=== PATIENT | female | born 1930 | race Hispanic/Latino ===

== ENCOUNTER 2016-10-18 20:06 | Emergency (ER) | payer MEDICARE ==
[2016-10-18 20:19] VITALS: PULSE 76; RESP 18; O2SAT 97; BMI 31.1
[2016-10-18 20:27] VITALS: BP 146/86; TEMP 98.6
--- NOTE | 2016-10-18 20:32 | ED PDOC ---
Arrival/HPI - General Chief Complaint: Dizziness/Lightheaded Time Seen by Provider: 10/18/16 20:07 Historian: Patient - History of Present Illness Narrative History of Present Illness (Text): 10/18/16 20:29 An 86 year old female patient whose past medical history includes, hypertension , diabetes, and A- fib (not on anticoagulants), presents to the emergency department with room spinning sensation dizziness since this morning. The patient states that she had a similar episode last week that resolved. She notes that the symptoms become worse when she lays down. The patient denies fevers, chills, headache, chest pain, abdominal pain, shortness of breath, nausea, vomiting, diarrhea, or any other complaint. Time/Duration: Other (This morning) Symptom Onset: Sudden Symptom Course: Unchanged Activities at Onset: Rest, Light Context: Home Past Medical History - Provider Review Nursing Documentation Reviewed: Yes - Reproductive Menopause: Yes - Cardiac Hx Hypertension: Yes - Pulmonary Hx Respiratory Disorders: No - Neurological Hx Neurological Disorder: No - HEENT Hx Blind: Yes (rt eye, left eye mild) - Renal Hx Renal Disorder: No - Endocrine/Metabolic Hx Endocrine Disorders: No - Hematological/Oncological Hx Blood Disorders: No - Integumentary Hx Melanoma: Yes - Musculoskeletal/Rheumatological Hx Musculoskeletal Disorders: No - Gastrointestinal Hx Gastrointestinal Disorders: No - Genitourinary/Gynecological Hx Genitourinary Disorders: No - Psychiatric Hx Psychophysiologic Disorder: No Hx Substance Use: No - Anesthesia Hx Anesthesia: Yes Family/Social History - Physician Review Nursing Documentation Reviewed: Yes Family/Social History: No Known Family HX Smoking Status: Never Smoked Hx Alcohol Use: No Hx Substance Use: No Allergies/Home Meds Allergies/Adverse Reactions: Allergies No Known Allergies Allergy (Verified 10/18/16 20:19) Review of Systems - Physician Review All systems were reviewed & negative as marked: Yes - Review of Systems Constitutional: absent: Fevers, Night Sweats Respiratory: absent: SOB Cardiovascular: absent: Chest Pain Gastrointestinal: absent: Abdominal Pain, Diarrhea, Nausea, Vomiting Neurological: Dizziness (spinning sensation dizziness). absent: Headache Physical Exam Vital Signs Reviewed: Yes Vital Signs Temp Pulse Resp BP Pulse Ox 10/18/16 20:23 98.6 F 76 18 146/86 97 10/18/16 20:18 98.1 F 76 18 146/89 97 Temperature: Afebrile Blood Pressure: Normal Pulse: Regular Respiratory Rate: Normal Appearance: Positive for: Well-Appearing Pain Distress: None Mental Status: Positive for: Alert and Oriented X 3 - Systems Exam Head: Present: Atraumatic, Normocephalic Pupils: Present: PERRL Extroacular Muscles: Present: EOMI Conjunctiva: Present: Normal Mouth: Present: Moist Mucous Membranes Neck: Present: Normal Range of Motion Respiratory/Chest: Present: Clear to Auscultation, Good Air Exchange. No: Respiratory Distress, Accessory Muscle Use Cardiovascular: Present: Regular Rate and Rhythm, Normal S1, S2. No: Murmurs Abdomen: Present: Normal Bowel Sounds. No: Tenderness, Distention, Peritoneal Signs Back: Present: Normal Inspection Upper Extremity: Present: Normal Inspection. No: Cyanosis, Edema Lower Extremity: Present: Normal Inspection. No: Edema Neurological: Present: GCS=15, CN II-XII Intact, Speech Normal Skin: Present: Warm, Dry, Normal Color. No: Rashes Psychiatric: Present: Alert, Oriented x 3, Normal Insight, Normal Concentration Medical Decision Making ED Course and Treatment: 10/18/16 20:33 Impression: An 86 year old female who present with one day duration room spinning sensation dizziness. Differential Diagnosis included but are not limited to: vertigo central vs peripheral etiology Plan: -- Head CT -- EKG -- Labs -- Antivert -- Urinalysis -- Reassess and disposition Progress Notes: 10/18/16 20:56 EKG: Ordered, reviewed, and independently interpreted the EKG. Rate : 78 BPM Rhythm : Atrial fibrillation Interpretation : RBBB Comparison : No previous EKG for comparison. pt reports h/o of afib. 10/19/16 15:07 pt noted to have h/o of afib not on anticoagulation. pt reports perisistent symptoms. consideration for posterior cva. recommended pt be observed in hospital overnight to r/o cva with mri. pt refuses. understands risk of cva. sgns AMA. Leaving Against Medical Advice (AMA): The patient is choosing to leave against medical advice. I have personally explained to the patient that choosing to do so may result in permanent bodily harm or . I have discussed at great length that without further evaluation and monitoring there may be unforeseen circumstances and/or deterioration causing permanent bodily harm or as a result of their choice. The patient is alert, oriented, and shows the mental capacity to make clear decisions regarding the patients health care at this time. The patient continues to wish to leave against medical advice. In light of the patients decision to leave against medical advice, follow-up has been arranged and the patient is aware of the importance to following up as instructed. The patient has been advised that they should return to the emergency room immediately if they change their mind at any time, or if their condition begins to change or worsen in any way. - Lab Interpretations Lab Results: 10/18/16 21:20 10/18/16 21:20 Lab Results 10/18/16 21:20: Sodium 134, Potassium 4.6, Chloride 96 L, Carbon Dioxide 27, Anion Gap 16, BUN 15, Creatinine 0.7, Est GFR ( Amer) > 60, Est GFR (Non- Af Amer) > 60, Random Glucose 106, Calcium 9.7, Magnesium 1.7, Total Bilirubin 0.6, AST 23, ALT 29, Alkaline Phosphatase 97, Lactate Dehydrogenase 430, Total Creatine Kinase 34 L, Troponin I < 0.01, Total Protein 7.6, Albumin 4.5, Globulin 3.1, Albumin/Globulin Ratio 1.5 10/18/16 21:20: PT 12.8 H, INR 1.19 H, APTT 28.1 10/18/16 21:20: WBC 12.9 H, RBC 4.84, Hgb 14.9, Hct 42.2, MCV 87.2, MCH 30.8, MCHC 35.3, RDW 13.8, Plt Count 322, MPV 9.9, Gran % 71.6 H, Lymph % (Auto) 16.9 L, [place] % (Auto) 9.4 H, Eos % (Auto) 1.9, Baso % (Auto) 0.2, Gran # 9.23 H, Lymph # 2.2, [place] # 1.2 H, Eos # 0.2, Baso # 0.03 I have reviewed the lab results: Yes - RAD Interpretation Radiology Orders: 10/18/16 20:26 HEAD W/O CONTRAST [CT] Stat 10/18/16 21:34 CXR [CHEST PORTABLE] [RAD] Stat - EKG Interpretation Interpreted by ED Physician: Yes Type: 12 lead EKG - Medication Orders Current Medication Orders: Discontinued Medications Diazepam (Valium) 2.5 mg IVP STAT STA PRN Reason: Protocol Stop: 10/18/16 22:01 Last Admin: 10/18/16 23:14 Dose: Not Given Non-Admin Reason: Patient Refused Meclizine HCl (Antivert) 50 mg PO STAT STA Stop: 10/18/16 20:27 Last Admin: 10/18/16 21:14 Dose: 50 mg - Scribe Statement The provider has reviewed the documentation as recorded by the Kavya Ruiz Provider Danitaibe Attestation: All medical record entries made by the Scribe were at my direction and personally dictated by me. I have reviewed the chart and agree that the record accurately reflects my personal performance of the history, physical exam, medical decision making, and the department course for this patient. I have also personally directed, reviewed, and agree with the discharge instructions and disposition. Disposition/Present on Arrival - Present on Arrival Any Indicators Present on Arrival: No History of DVT/PE: No History of Uncontrolled Diabetes: No Urinary Catheter: No History of Decub. Ulcer: No History Surgical Site Infection Following: None - Disposition Have Diagnosis and Disposition been Completed?: Yes Diagnosis: Vertigo Disposition: AGAINST MEDICAL ADVICE Disposition Time: 11:00 Condition: UNKNOWN Discharge Instructions (ExitCare): Vertigo (ED), Leukocytosis (ED), Dizziness ( ED) Additional Instructions: please follow up with your doctor. you are refusing hospital admission. return to er with worsenign symptoms or concerns. Prescriptions: Meclizine [Antivert] 25 mg PO Q6 PRN #30 tab PRN Reason: Dizziness Referrals: [facility] [Outside] - Follow up with primary Regulo Salinas MD [Staff Provider] - Follow up with primary Forms: [employer] (Tunisian)
[2016-10-18 21:31] LABS: BASO # 0.03 K/mm3 (0.0-2.0); BASO % 0.2 % (0.0-3.0); EOS # 0.2 (0.0-0.7); EOS % 1.9 % (1.5-5.0); GRAN # 9.23 (1.4-6.5); GRAN % 71.6 % (50.0-68.0); HEMOGLOBIN 14.9 g/dL (12.0-16.0); LYMPH # 2.2 (1.2-3.4); LYMPH % 16.9 % (22.0-35.0); MEAN CELL VOLUME 87.2 fl (80.0-105.0); MEAN CORPUSCULAR HEMOGLOBIN 30.8 pg (25.0-35.0); MEAN CORPUSCULAR HGB CONC 35.3 g/dl (31.0-37.0); MEAN PLATELET VOLUME 9.9 fl (7.0-11.0); MONO # 1.2 (0.1-0.6); MONO % 9.4 % (1.0-6.0); PLATELET COUNT 322 10^3/uL (120.0-450.0); RBC 4.84 10^6/uL (3.5-6.1); RED CELL DISTRIBUTION WIDTH 13.8 % (11.5-14.5); WHITE BLOOD COUNT 12.9 10^3/ul (4.5-11.0)
[2016-10-18 21:42] LABS: ALB/GLOB RATIO 1.5 (1.1-1.8); ALBUMIN 4.5 g/dL (3.0-4.8); ALT/SGPT 29 U/L (7-56); AST/SGOT 23 U/L (15-39); BLOOD UREA NITROGEN 15 mg/dL (7-21); CALCIUM 9.7 mg/dL (8.4-10.5); GFR AFRICAN-AMERICAN > 60; GFR NON-AFRICAN AMERICAN > 60; MAGNESIUM 1.7 mg/dL (1.7-2.2)
[2016-10-18 21:43] LABS: INR 1.19 (0.93-1.08); PARTIAL THROMBOPLASTIN TIME 28.1 Seconds (23.7-30.8); PROTHROMBIN TIME 12.8 Seconds (9.9-11.8)
[2016-10-18 21:53] LABS: TROPONIN I < 0.01 ng/mL
[2016-10-18] MEDS ORDERED: diaZEpam 10 mg/2 ml Inj IVP STA (22:00)
--- NOTE | 2016-10-18 23:01 | CT ---
EXAM: CT Head Without Intravenous Contrast CLINICAL HISTORY: 86 years old, female; Signs and symptoms; Dizziness TECHNIQUE: Axial computed tomography images of the head/brain without intravenous contrast. All CT scans at this facility use one or more dose reduction techniques, viz.: automated exposure control; ma/kV adjustment per patient size (including targeted exams where dose is matched to indication; i.e. head); or iterative reconstruction technique. COMPARISON: No relevant prior studies available. FINDINGS: Brain: No acute intracranial hemorrhage. Age-appropriate periventricular white matter disease. No edema. Ventricles: Age-appropriate ventriculomegaly. Bones: No acute displaced fracture. Sinuses: Unremarkable as visualized. No acute sinusitis. Mastoid air cells: Unremarkable as visualized. No mastoid effusion. IMPRESSION: No acute intracranial hemorrhage, or suspicious mass effect.
--- NOTE | 2016-10-19 09:25 | RAD ---
HISTORY: dizziness COMPARISON: No prior. FINDINGS: LUNGS: No active pulmonary disease. PLEURA: No significant pleural effusion identified, no pneumothorax apparent. CARDIOVASCULAR: Normal. OSSEOUS STRUCTURES: No significant abnormalities. VISUALIZED UPPER ABDOMEN: Normal. OTHER FINDINGS: None. IMPRESSION: No active disease.
--- NOTE | 2016-10-19 23:52 | CARD ---
APPROVED REPORT EKG Measurement Heart [id number] <Conclusion> Atrial fibrillation Left axis deviation Right bundle branch block Abnormal ECG
== END 2016-10-18 22:50 | disposition left against medical advice (07) ==
LOC: ED 20:06
DX: R42 Dizziness and giddiness (principal); I10 Essential (primary) hypertension; E11.9 Type 2 diabetes mellitus without complications

== ENCOUNTER 2017-11-25 13:42 | Inpatient (IN) | payer MEDICARE ==
[2017-11-25 13:58] VITALS: BMI 32.1
--- NOTE | 2017-11-25 13:58 | ED PDOC ---
Arrival/HPI - General Time Seen by Provider: 11/25/17 13:47 Historian: Patient - History of Present Illness Narrative History of Present Illness (Text): 11/25/17 14:00 87 year old female, with past medical history of hypertension, diabetes and A- fib, presents to the emergency department complaining of vertigo, bilateral leg swelling and shortness of breath since past couple days. Patient states she was previously evaluated in the emergency department for vertigo but signed out AMA with Meclizine. Patient states mild improvement to symptoms with medication but has been worsening for past few days. Patient describes symptoms as room spinning worsening with movement of her head from side to side. Additionally, patient informs bilateral leg swelling for past 2 days associated with shortness of breath with exertion. Patient denies any associated chest pain or cough. Patient denies any fever, chills, nausea, vomiting, diarrhea, abdominal pain, neck pain, back pain, headache, urinary output changes, changes in bowel movement or any other complaints. Patient presents to the emergency department for medical evaluation. Time/Duration: < week Symptom Onset: Gradual Symptom Course: Unchanged Activities at Onset: Light Context: Home Past Medical History - Provider Review Nursing Documentation Reviewed: Yes - Cardiac Hx Hypertension: Yes - Pulmonary Hx Respiratory Disorders: No - Neurological Hx Neurological Disorder: No - HEENT Hx Blind: Yes (rt eye, left eye mild) - Renal Hx Renal Disorder: No - Endocrine/Metabolic Hx Endocrine Disorders: No - Hematological/Oncological Hx Blood Disorders: No - Integumentary Hx Melanoma: Yes - Musculoskeletal/Rheumatological Hx Musculoskeletal Disorders: No - Gastrointestinal Hx Gastrointestinal Disorders: No - Genitourinary/Gynecological Hx Genitourinary Disorders: No - Psychiatric Hx Psychophysiologic Disorder: No Hx Substance Use: No - Anesthesia Hx Anesthesia: Yes Family/Social History - Physician Review Nursing Documentation Reviewed: Yes Family/Social History: No Known Family HX Smoking Status: Never Smoked Hx Alcohol Use: No Hx Substance Use: No Allergies/Home Meds Allergies/Adverse Reactions: Allergies No Known Allergies Allergy (Verified 11/25/17 14:09) Home Medications: Home Meds Medication Instructions Recorded Confirmed Aspirin [Aspirin Chewable] 1 tab PO DAILY 11/25/17 11/25/17 Meclizine [Antivert] 25 mg PO Q8 11/25/17 11/25/17 Omeprazole 40 mg PO DAILY 11/25/17 11/25/17 amLODIPine [Norvasc] 1 tab PO DAILY 11/25/17 11/25/17 amLODIPine [Norvasc] 10 mg PO DAILY 11/25/17 11/25/17 glyBURIDE [Micronase] 2.5 mg PO BID 11/25/17 11/25/17 Review of Systems - Physician Review All systems were reviewed & negative as marked: Yes - Review of Systems Constitutional: absent: Fevers Respiratory: SOB. absent: Cough Cardiovascular: Edema, DOUGLAS. absent: Chest Pain Gastrointestinal: absent: Abdominal Pain, Diarrhea, Nausea, Vomiting Musculoskeletal: absent: Back Pain, Neck Pain Neurological: Dizziness. absent: Headache Physical Exam Vital Signs Reviewed: Yes Vital Signs Temp Pulse Resp BP Pulse Ox 11/25/17 15:34 74 16 159/76 H 95 11/25/17 15:33 159/76 H 11/25/17 14:09 17 95 11/25/17 13:57 98.3 F 76 18 165/73 H 95 Temperature: Afebrile Blood Pressure: Hypertensive Pulse: Regular Respiratory Rate: Normal Appearance: Positive for: Well-Appearing, Non-Toxic, Comfortable Pain Distress: None Mental Status: Positive for: Alert and Oriented X 3 - Systems Exam Head: Present: Atraumatic, Normocephalic Pupils: Present: PERRL Extroacular Muscles: Present: EOMI Conjunctiva: Present: Normal Neck: Present: Normal Range of Motion Respiratory/Chest: Present: Clear to Auscultation, Good Air Exchange. No: Respiratory Distress, Accessory Muscle Use Cardiovascular: Present: Normal S1, S2, Irregular Rhythm (Irregularly irregular rhythm). No: Murmurs Abdomen: No: Tenderness, Distention, Peritoneal Signs Back: Present: Normal Inspection Upper Extremity: Present: Normal Inspection. No: Cyanosis, Edema Lower Extremity: Present: Edema (bilateral pitting edema) Neurological: Present: GCS=15, CN II-XII Intact, Speech Normal Skin: Present: Warm, Dry, Normal Color. No: Rashes Psychiatric: Present: Alert, Oriented x 3, Normal Insight, Normal Concentration Medical Decision Making ED Course and Treatment: 11/25/17 13:57 Impression: 87 year old female presents to the emergency department complaining of vertigo, bilateral leg swelling and shortness of breath. Plan: -- CT of head -- EKG -- Labs -- CXR -- UA -- US of Lower Extremity --aspirin and meclizine if ct head negative. -- Reassess and disposition Prior Visits: Notes and results from previous visits were reviewed. Progress Notes: 11/25/17 14:55 EKG shows afib at 76bpm (Patient has hx of afib). Cxray negative. BNP elevated. Trop x [address] head negative. Labs show hyponatriemia. 11/25/17 15:29 U/s negative for dvt 11/25/17 17:19 IMPRESSION: Unremarkable CT pulmonary angiogram. No pulmonary embolus. 1.4 cm right upper lobe mass with subtle spiculation suspicious for primary neoplasm of the lung. 11/25/17 17:[address] Campoverde who will admit - Lab Interpretations Lab Results: 11/25/17 14:15 11/25/17 14:15 Lab Results 11/25/17 16:28: Urine Color Light yellow, Urine Appearance Cloudy, Urine pH 6.0 , Ur Specific [place] 1.025, Urine Protein >=300 H, Urine Glucose (UA) Negative , Urine Ketones Negative, Urine Blood Small H, Urine Nitrate Negative, Urine Bilirubin Negative, Urine Urobilinogen 2.0 H, Ur Leukocyte Esterase Negative, Urine RBC 10 - 15, Urine WBC 1 - 3, Ur Epithelial Cells Many, Amorphous Sediment Moderate, Urine Bacteria Many, Coarse Granular Casts Trace H, Urine Other Uyeast 11/25/17 14:15: Sodium 123 L, Potassium 4.2, Chloride 89 L, Carbon Dioxide 24, Anion Gap 15, BUN 17, Creatinine 0.5 L, Est GFR ( Amer) > 60, Est GFR ( Non-Af Amer) > 60, Random Glucose 173 H, Calcium 9.0, Phosphorus 3.8, Magnesium 1.7, Total Bilirubin 1.2, AST 46 H, ALT 31, Alkaline Phosphatase 104, Total Creatine Kinase 76, Troponin I < 0.01, NT-Pro-B Natriuret Pep 2240 H, Total Protein 7.2, Albumin 4.2, Globulin 3.0, Albumin/Globulin Ratio 1.4 11/25/17 14:15: PT 15.2 H, INR 1.31, APTT 25.6, D-Dimer, Quantitative 483 H 11/25/17 14:15: WBC 11.9 H, RBC 4.16, Hgb 12.5 D, Hct 34.3 L, MCV 82.5 D, MCH 30.0, MCHC 36.4, RDW 13.2, Plt Count 425, MPV 9.2, Gran % 82.9 H, Lymph % (Auto ) 7.9 L, [place] % (Auto) 8.3 H, Eos % (Auto) 0.7 L, Baso % (Auto) 0.2, Gran # 9.85 H, Lymph # (Auto) 0.9 L, [place] # (Auto) 1.0 H, Eos # (Auto) 0.1, Baso # ( Auto) 0.02 - RAD Interpretation Radiology Orders: 11/25/17 13:50 HEAD W/O CONTRAST [CT] Stat CHEST ONE VIEW [RAD] Stat 11/25/17 13:56 DUPLEX LOWER EXTRM VEIN BILAT [US] Stat 11/25/17 15:19 ANGIO CHEST PE PROTOCOL [CT] Stat - Medication Orders Current Medication Orders: Discontinued Medications Aspirin (Aspirin Chewable) 324 mg PO STAT STA Stop: 11/25/17 14:58 Last Admin: 11/25/17 15:33 Dose: 324 mg Furosemide (Lasix) 40 mg IVP STAT STA Stop: 11/25/17 14:55 Last Admin: 11/25/17 15:33 Dose: 40 mg MAR Blood Pressure Document 11/25/17 15:33 [facility] [place] (Rec: 11/25/17 15:33 [id number] Blood Pressure Blood Pressure (100/60-150/90 mm Hg) 159/76 IVP Administration Document 11/25/17 15:33 [facility] [place] (Rec: 11/25/17 15:33 [id number] Charges for Administration # of IVP Administrations 1 Meclizine HCl (Antivert) 50 mg PO STAT STA Stop: 11/25/17 14:58 Last Admin: 11/25/17 15:32 Dose: 50 mg - Scribe Statement The provider has reviewed the documentation as recorded by the Danitaibrachael Sifuentes. All medical record entries made by the Danitaibrachael were at my direction and personally dictated by me. I have reviewed the chart and agree that the record accurately reflects my personal performance of the history, physical exam, medical decision making, and the department course for this patient. I have also personally directed, reviewed, and agree with the discharge instructions and disposition. Disposition/Present on Arrival - Present on Arrival Any Indicators Present on Arrival: No History of DVT/PE: No History of Uncontrolled Diabetes: No Urinary Catheter: No History Surgical Site Infection Following: None - Disposition Have Diagnosis and Disposition been Completed?: Yes Diagnosis: CHF (congestive heart failure), Hyponatremia, Lung mass, Dizziness, Atrial fibrillation Disposition Time: 18:52 Patient Plan: Admission Patient Problems: Current Active Problems Problem Status Onset CHF (congestive heart failure) Acute Hyponatremia Acute Lung mass Acute Dizziness Acute Atrial fibrillation Acute Condition: FAIR
[2017-11-25 14:37] LABS: BASO # 0.02 K/mm3 (0.0-2.0); BASO % 0.2 % (0.0-3.0); EOS # 0.1 (0.0-0.7); EOS % 0.7 % (1.5-5.0); GRAN # 9.85 (1.4-6.5); GRAN % 82.9 % (50.0-68.0); HEMOGLOBIN 12.5 g/dL (12.0-16.0); LYMPH # 0.9 (1.2-3.4); LYMPH % 7.9 % (22.0-35.0); MEAN CELL VOLUME 82.5 fl (80.0-105.0); MEAN CORPUSCULAR HGB CONC 36.4 g/dl (31.0-37.0); MEAN PLATELET VOLUME 9.2 fl (7.0-11.0); MONO % 8.3 % (1.0-6.0); RBC 4.16 10^6/uL (3.5-6.1); RED CELL DISTRIBUTION WIDTH 13.2 % (11.5-14.5); WHITE BLOOD COUNT 11.9 10^3/ul (4.5-11.0)
[2017-11-25 14:40] LABS: INR 1.31; PROTHROMBIN TIME 15.2 SECONDS (9.4-12.5)
[2017-11-25 14:41] LABS: ALB/GLOB RATIO 1.4 (1.1-1.8); ALBUMIN 4.2 g/dL (3.0-4.8); ALT/SGPT 31 U/L (7-56); AST/SGOT 46 U/L (14-36); BLOOD UREA NITROGEN 17 mg/dL (7-21); GFR NON-AFRICAN AMERICAN > 60; PARTIAL THROMBOPLASTIN TIME 25.6 Seconds (25.1-36.5)
[2017-11-25 14:53] LABS: B-TYPE NATRIURETIC PEPTIDE 2240 pg/mL (0-450); TROPONIN I < 0.01 ng/mL
--- NOTE | 2017-11-25 14:54 | RAD ---
Date of service: 11/25/2017 PROCEDURE: CHEST RADIOGRAPH, 1 VIEW HISTORY: dizziness COMPARISON: 10/18/2016 FINDINGS: LUNGS: Clear. PLEURA: No pneumothorax or pleural fluid seen. CARDIOVASCULAR: Normal. OSSEOUS STRUCTURES: No significant abnormalities. VISUALIZED UPPER ABDOMEN: Normal. OTHER FINDINGS: None. IMPRESSION: No active disease.
--- NOTE | 2017-11-25 14:58 | CT ---
Date of service: 11/25/2017 PROCEDURE: CT HEAD WITHOUT CONTRAST. HISTORY: dizziness COMPARISON: 10/18/2016 TECHNIQUE: Axial computed tomography images were obtained through the head/brain without intravenous contrast. Radiation dose: Total exam DLP = 1027 mGy-cm. This CT exam was performed using one or more of the following dose reduction techniques: Automated exposure control, adjustment of the mA and/or kV according to patient size, and/or use of iterative reconstruction technique. FINDINGS: HEMORRHAGE: No intracranial hemorrhage. BRAIN: No mass effect or edema. No atrophy or chronic microvascular ischemic changes. VENTRICLES: Unremarkable. No hydrocephalus. CALVARIUM: Unremarkable. PARANASAL SINUSES: Unremarkable as visualized. No significant inflammatory changes. MASTOID AIR CELLS: Unremarkable as visualized. No inflammatory changes. OTHER FINDINGS: None. IMPRESSION: No acute findings
[2017-11-25] MEDS ORDERED: Iodixanol 320 MG/ML 100 ML BOTTLE IV ONE (16:08)
[2017-11-25 16:37] LABS: URINE APPEARANCE CLOUDY (CLEAR); URINE BILIRUBIN NEGATIVE (NEGATIVE); URINE BLOOD SMALL (NEGATIVE); URINE COLOR LIGHT YELLOW (YELLOW); URINE GLUCOSE (UA) NEGATIVE (NEGATIVE); URINE LEUKOCYTE ESTERASE NEGATIVE Leu/uL (NEGATIVE); URINE PROTEIN >=300 mg/dL (<30 mg/dL)
[2017-11-25 16:40] LABS: URINE BACTERIA MANY (NEG); URINE EPITHELIAL CELLS MANY /hpf (0-5)
[2017-11-25 16:41] LABS: URINE AMORPHOUS SEDIMENT MODERATE
[2017-11-25 16:43] LABS: URINE COARSE GRANULAR CAST TRACE /hpf (0-2)
--- NOTE | 2017-11-25 17:18 | CT ---
Date of service: 11/25/2017 PROCEDURE: CT Chest with contrast (Pulmonary Angiogram) HISTORY: shortness fo breath COMPARISON: None available. TECHNIQUE: Axial computed tomography images were obtained of the chest in the pulmonary arterial phase of enhancement. Coronal and sagittal reformatted images were created and reviewed. Intravenous contrast dose: 100 cc Visipaque [id number]. Mean Hounsfield unit values in the main pulmonary artery: 330.70 Radiation dose: Total exam DLP = 529.72 mGy-cm. This CT exam was performed using one or more of the following dose reduction techniques: Automated exposure control, adjustment of the mA and/or kV according to patient size, and/or use of iterative reconstruction technique. FINDINGS: PULMONARY ARTERIES: Dilated main pulmonary artery 3.8 cm consistent with pulmonary arterial hypertension. AORTA: No acute findings. No thoracic aortic aneurysm. LUNGS: 14 mm pulmonary nodule apex of the right lung. The mass displays slight spiculation. PLEURAL SPACES: Trace bilateral pleural effusions left larger than right. HEART: Unremarkable. No cardiomegaly. No significant pericardial effusion. LYMPH NODES: No lymphadenopathy. BONES, CHEST WALL: Scoliosis, secondary degenerative change at multiple levels. This includes disc space narrowing and non marginal osteophyte formation mid and lower thoracic spine. OTHER FINDINGS: Partially calcified mass likely benign upper pole right kidney. This is not felt to be clinically consequential. IMPRESSION: Unremarkable CT pulmonary angiogram. No pulmonary embolus. 1.4 cm right upper lobe mass with subtle spiculation suspicious for primary neoplasm of the lung. Communication of results: I discussed the findings with La, physician legal executive assistant involved in the care and management of this individual at the time of this interpretation. Study completed at 16:51. Preliminary results provided at 17:16.
--- NOTE | 2017-11-25 17:22 | US ---
HISTORY: Leg pain and swelling. Evaluate for DVT PHYSICIAN(S): Lemuel Sterling MD. TECHNIQUE: Duplex sonography and color-flow Doppler with graded compression were used to evaluate the deep venous systems of both lower extremities. FINDINGS: The visualized deep venous systems of both lower extremities are sonographically normal and compressible. Normal wave forms and augmentation are seen. There is no sonographic evidence for deep venous thrombosis in the visualized segments of both lower extremities. There is a 2.8 x 5.3 cm fluid collection left popliteal fossa, consistent with a [place] cyst IMPRESSION: No sonographic evidence for deep venous thrombosis in the visualized segments of both lower extremities.
[2017-11-25] MEDS ORDERED: Enoxaparin 40 mg Syringe SC STA (18:59)
[2017-11-25] MEDS: Levalbuterol 1.25 MG/3 ML Inhal Soln UD IH SCH (23:15)
[2017-11-26 00:15] LABS: HDL CHOLESTEROL 77 mg/dL (29-60)
[2017-11-26 00:25] LABS: LDL CHOLESTEROL 97 mg/dL (0-129)
[2017-11-26 00:26] LABS: TROPONIN I < 0.01 ng/mL
[2017-11-26] MEDS: Levalbuterol 1.25 MG/3 ML Inhal Soln UD IH SCH ×4 (01:02→19:45)
[2017-11-26] MEDS ORDERED: Levalbuterol 1.25 MG/3 ML Inhal Soln UD IH STA (04:44)
--- NOTE | 2017-11-26 05:46 | HP ---
HISTORY OF PRESENT ILLNESS: The patient is 87 years old, known to me from office practice. She was just seen last week. The patient lately has been very depressed because of her worsening eyesight. 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 She was brought in for regular checkup. At that point, she has no complaint, however, she started to have shortness of breath. There is no history of fever, no chills. No nausea or vomiting. No history of hemoptysis, no hematemesis. No chest pain. No leg swelling. PAST MEDICAL HISTORY: Significant for: 1. Hypertension. 2. Kho-rcqfrmv-ykyqzmipf diabetes. 3. Gastritis. 4. Wet macular degeneration. 5. History of melanoma resection in the remote past. ALLERGIES: SHE IS NOT ALLERGIC TO ANY MEDICATION. MEDICATION AT HOME: She is on amlodipine 10 mg daily, omeprazole 40 mg daily, meclizine 25 three times a day, glyburide 2.5 twice a day and aspirin 81 mg daily. SOCIAL HISTORY: She used to be a smoker in the past, but quit many, many years ago. 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 REVIEW OF SYSTEMS: Significant for feeling weak, visual disturbance and shortness of breath. PHYSICAL EXAMINATION GENERAL: She is awake, alert, oriented, communicative. VITAL SIGNS: She is afebrile, pulse 70, respirations 18, blood pressure 140/76. LUNGS: Bilateral few soft crackle at bases. HEART: S1 and S2 audible. ABDOMEN: Soft, nontender. No rebound. No guarding. NEUROLOGICAL: She is awake, alert, oriented, but visually impaired. EXTREMITIES: Bilateral legs, no edema. LABORATORY EXAM: WBC is 11.9, hemoglobin 12.5, hematocrit 34.3, platelet of 425. PT is 15.2, INR 1.31. Chemistry: Sodium 123, potassium 4.2, chloride 89, CO2 of 24, BUN 17, creatinine 0.5, blood sugar of 123. Calcium 9. LFTs are within normal limits. BNP 2240. Urine shows trace granular cast and small blood. She had x-ray of chest done that shows no active disease; however, CT scan of the chest shows 1.4 cm right upper lobe mass was suspicious for neoplasm and otherwise negative for pulmonary angiogram. ASSESSMENT: 1. Paroxysmal atrial fibrillation. 2. Hypertension. 3. Lung mass. 4. Mild congestive heart failure. 5. History of hypertension. 6. Cmh-gppjtft-pkxwxcliz diabetes. 7. Hyponatremia. PLAN: I will order for echocardiogram. We will continue her medication and monitor her blood sugar. I will discuss with the family if we should pursue for this lung mass, if the patient or family is willing to proceed for biopsy, we will get Dr. Lemuel Sterling involved. Bill Campoverde MD
[2017-11-26] MEDS: Pantoprazole 40 mg EC Tab PO SCH (06:02)
[2017-11-26 07:01] LABS: ALB/GLOB RATIO 1.3 (1.1-1.8); ALBUMIN 3.8 g/dL (3.0-4.8); ALT/SGPT 38 U/L (7-56); AST/SGOT 40 U/L (14-36); BASO # 0.02 K/mm3 (0.0-2.0); BASO % 0.2 % (0.0-3.0); BLOOD UREA NITROGEN 17 mg/dL (7-21); CALCIUM 8.6 mg/dL (8.4-10.5); EOS % 0.2 % (1.5-5.0); GFR NON-AFRICAN AMERICAN > 60; GRAN # 10.12 (1.4-6.5); GRAN % 79.9 % (50.0-68.0); HEMOGLOBIN 11.2 g/dL (12.0-16.0); LYMPH # 1.2 (1.2-3.4); LYMPH % 9.5 % (22.0-35.0); MEAN CELL VOLUME 82.7 fl (80.0-105.0); MEAN CORPUSCULAR HEMOGLOBIN 29.8 pg (25.0-35.0); MEAN PLATELET VOLUME 9.5 fl (7.0-11.0); MONO # 1.3 (0.1-0.6); MONO % 10.2 % (1.0-6.0); RBC 3.76 10^6/uL (3.5-6.1); RED CELL DISTRIBUTION WIDTH 13.2 % (11.5-14.5); WHITE BLOOD COUNT 12.7 10^3/ul (4.5-11.0)
[2017-11-26 07:05] LABS: FREE T4 1.32 ng/dL (0.78-2.19)
[2017-11-26] MEDS ORDERED: methylPREDNISolone 50 MG in Sodium Chloride 0.9% 100 ML IVPB ONE (09:37)
[2017-11-26] MEDS ORDERED: Potassium Chloride 20 mEq ER Tab PO ONE (09:39)
[2017-11-26 10:34] LABS: HDL CHOLESTEROL 71 mg/dL (29-60)
[2017-11-26] MEDS: Enoxaparin 80 mg Syringe SC SCH ×2 (10:34→22:06)
[2017-11-26 10:44] LABS: LDL CHOLESTEROL 96 mg/dL (0-129)
[2017-11-26] MEDS ORDERED: Levalbuterol 1.25 MG/3 ML Inhal Soln UD IH PRN (11:30)
[2017-11-26] MEDS ORDERED: Levalbuterol 1.25 MG/3 ML Inhal Soln UD IH SCH (12:00)
--- NOTE | 2017-11-26 12:10 | PN ---
DATE: 11/26/2017 SUBJECTIVE: The patient is 87 years old, seen and examined. She states she feels better. Shortness of breath is better than before. No complaint of nausea or vomiting. PHYSICAL EXAMINATION: VITAL SIGNS: She is afebrile, pulse 87, respirations 20, blood pressure 168/83. LUNGS: Bilateral expiratory rhonchi. HEART: S1 and S2 audible. ABDOMEN: Soft. Nontender. No rebound. No guarding. NEUROLOGICAL: The patient is awake, alert, oriented, communicative. EXTREMITIES: Bilateral leg, no edema. LABORATORY EXAM: WBC is 12.7, hemoglobin 11.2, hematocrit 31.1, platelet of 425. Chemistry: Sodium 124, potassium 3.7, chloride 191, CO2 of 23, BUN 17, creatinine 0.5, blood sugar of 172, HDL is 77. CT scan shows right upper lung mass that is 1.4 cm. Echocardiogram is pending. ASSESSMENT: 1. Chronic obstructive pulmonary disease exacerbation. 2. Right upper lung mass. 3. Congestive heart failure. 4. Mty-cbpsljd-paceoxmty diabetes. 5. Hypertension. 6. Hyperlipidemia. PLAN: I will cut down her meclizine to every 12. Continue her on nebulizer treatment. Monitor her blood sugar. Discussed with the patient and her son, Darion. They do not want to biopsy give her age and other comorbidities. She states she does not want to know what is that mass. The patient has been a smoker for almost 50 years. Currently, because of her AFib, she is on Lovenox. I will start her on Solu-Medrol. Out of bed to chair. Follow up echocardiogram. Follow up the patient in the a.m. Bill Campoverde MD
[2017-11-26] MEDS ORDERED: Albuterol-Ipratrop 3 mg / 0.5 (3 ml) UD IH PRN (12:22)
--- NOTE | 2017-11-26 12:47 | CARD ---
APPROVED REPORT Date of service: 11/26/2017 EXAM: Two-dimensional and M-mode echocardiogram with Doppler and color Doppler. INDICATION Dyspnea Atrial Fibrillation 2D DIMENSIONS Left Atrium (2D)5.9 (1.6-4.0cm)IVSd1.4 (0.7-1.1cm) LVDd4.7 (3.9-5.9cm)PWd1.7 (0.7-1.1cm) LVDs2.8 (2.5-4.0cm)FS (%) 41.4 % LVEF (%)72.1 (>50%) M-Mode DIMENSIONS Aortic Root3.50 (2.2-3.7cm)Aortic Cusp Exc.1.70 (1.5-2.0cm) Aortic Valve AoV Peak Kpvdwrps903.0cm/sAoV VTI41.7cmAO Peak GR.18mmHg LVOT Peak Zcvutrpq397.0cm/sLVOT VTI32.50cmAO Mean GR.9mmHg Mitral Valve MV E Viaerysc633.0cm/sMV A Vmyeymzs77.8cm/sMV OGK59sd E/A ratio2.6MVA (PHT)3.38cm2 TDI Lateral E' Peak V15.80cm/sMedial E' Peak V7.90cm/sE/Lateral E'8.9 E/Medial E'17.7 Pulmonary Valve PV Peak Jxvlukuu428.0cm/sPV Peak Grad.6mmHg Tricuspid Valve TR Peak Ybocsqpy274hy/sRAP NBAZZSAJ38tfVaCP Peak Gr.67mmHg KVDH83knDh LEFT VENTRICLE The left ventricle is normal size. There is mild to moderate concentric left ventricular hypertrophy. The left ventricular function is normal.EF-65-70% . There is normal LV segmental wall motion. A fib No left ventricle thrombus noted on this study. There is no ventricular septal defect visualized. There is no left ventricular aneurysm. There is no mass noted in the left ventricle. RIGHT VENTRICLE The right ventricle is mildly dilated. There is normal right ventricular wall thickness. Systolic function of RV is mildly reduced. ATRIA The left atrium is moderately dilated. The right atrium is mildly dilated. The interatrial septum is intact with no evidence for an atrial septal defect. AORTIC VALVE The aortic valve is thickened but opens well. The aortic valve is moderately sclerotic. There is trace aortic regurgitation. Aortic Sclerosis Vs mild As There is no aortic valvular vegetation. MITRAL VALVE The mitral valve is thickened but opens well. Mitral regurgitation is moderate. There is no mitral valve stenosis. There is no evidence of mitral valve prolapse. TRICUSPID VALVE The tricuspid valve leaflets are thickened , but open well. There is moderate tricuspid regurgitation.RVSP-72 mmof hg. There is no tricuspid valve stenosis. There is no tricuspid valve prolapse or vegetation. PULMONIC VALVE The pulmonic valve is mildly thickened. There is mild to moderate pulmonic valvular regurgitation. There is no pulmonic valvular stenosis. GREAT VESSELS The aortic root is normal in size. The ascending aorta is normal in size. The pulmonary artery is normal. The IVC is normal in size and collapses >50% with inspiration. PERICARDIAL EFFUSION There is no pleural effusion. There is no pericardial effusion. <Conclusion> The left ventricle is normal size. There is mild to moderate concentric left ventricular hypertrophy. The left ventricular function is normal.EF-65-70% .The right ventricle is mildly dilated. Systolic function of RV is mildly reduced. There is trace aortic regurgitation. Aortic Sclerosis Vs mild As Mitral regurgitation is moderate. There is moderate tricuspid regurgitation.RVSP-72 mmof hg. There is mild to moderate pulmonic valvular regurgitation. The IVC is normal in size and collapses >50% with inspiration. There is no pericardial effusion.
--- NOTE | 2017-11-26 14:03 | CARD ---
APPROVED REPORT Date of service: 11/25/2017 EKG Measurement Heart [id number] <Conclusion> Atrial fibrillation right bundle branch block T wave abnormality, consider lateral ischemia or digitalis effect Abnormal ECG
[2017-11-26] MEDS: Insulin Lispro (HUMAlog) HIGH Coverage SC SCH ×2 (17:38→22:06)
--- NOTE | 2017-11-26 19:47 | CON ---
DATE: 11/26/2017 BRIEF CLINICAL HISTORY: This is an 87-year-old female with past medical history significant for chronic atrial fibrillation last 7 years, being told after the cataract surgery, the patient has irregular heart beat, not on anticoagulation, admitted yesterday with progressive worsening shortness of breath. CAT scan suspicious for right upper lobe mass, possible neoplasm. On admission, the patient has also wheezing, got Proventil treatment, it has got better. Denies any chest pain, but short of breath. PAST MEDICAL HISTORY: Significant for atrial fibrillation told 7 years ago after the cataract surgery, the patient has irregular heart beat, history of hypertension, history of macular cataract surgery, history of type 2 diabetes, gastritis, macular degeneration. PAST SURGICAL HISTORY: Significant for cataract surgery, resection of melanoma in the past. SOCIAL HISTORY: Active tobacco abuse, half a pack a day. Denies any history of alcohol abuse. ALLERGIES: NO KNOWN DRUG ALLERGIES. CURRENT MEDICATIONS: The patient is taking amlodipine, omeprazole, meclizine, glyburide and aspirin. REVIEW OF SYSTEMS: A 14-point review of systems is negative except as per HPI, the recent shortness of breath getting worse. PHYSICAL EXAMINATION: VITAL SIGNS: Height of the patient is 5 feet and 2 inches, weight of the patient 176 pounds, body mass index 32 kg/m2. Heart rate 95, blood pressure 186/71. HEENT: PERRLA. Extraocular muscles intact. NECK: Supple. No carotid bruits or thyromegaly. CHEST: Clear to auscultation with scattered rhonchi noted. Decreased air entry in right base. ABDOMEN: Soft. EXTREMITIES: Clubbing and cyanosis negative. LABORATORY DATA: EKG showed atrial fibrillation. CAT scan of the chest was done yesterday and that shows 1.5 cm upper lobe mass with subtle speculation suspicious for primary neoplasm of the lung. IMPRESSION: An 87-year-old female with a past medical history of diabetes; hypertension; hyperlipidemia; history of chronic atrial fibrillation, not on anticoagulation; admitted with worsening shortness of breath. CT chest is possible 1.4 cm mass in the lung. RECOMMENDATIONS: Follow up for biopsy. We will start Lovenox so she can be held for the biopsy. We will not start Eliquis. For now, we will get echo to assess LV function. Lipid profile, TSH, hemoglobin A1c and we will discontinue amlodipine and we will start verapamil to control the heart rate. We will follow with you. Further recommendations depending on hospital course. We will follow with you. Thank you, , for providing us the opportunity in taking care of the patient, Alice Blum. Rakel Bush MD
[2017-11-26] MEDS: MethylPREDNISolone 40 mg Vial IV SCH (22:07)
[2017-11-27] MEDS: Levalbuterol 1.25 MG/3 ML Inhal Soln UD IH SCH ×4 (02:21→19:39)
[2017-11-27] MEDS: Pantoprazole 40 mg EC Tab PO SCH (06:05)
[2017-11-27 06:27] LABS: GRAN # 10.18 (1.4-6.5); GRAN % 93.6 % (50.0-68.0); HEMOGLOBIN 10.5 g/dL (12.0-16.0); LYMPH # 0.6 (1.2-3.4); LYMPH % 5.1 % (22.0-35.0); MEAN CORPUSCULAR HEMOGLOBIN 29.9 pg (25.0-35.0); MEAN CORPUSCULAR HGB CONC 35.6 g/dl (31.0-37.0); MEAN PLATELET VOLUME 9.2 fl (7.0-11.0); MONO # 0.1 (0.1-0.6); MONO % 1.3 % (1.0-6.0); PLATELET COUNT 304 10^3/uL (120.0-450.0); RBC 3.51 10^6/uL (3.5-6.1); RED CELL DISTRIBUTION WIDTH 13.6 % (11.5-14.5); WHITE BLOOD COUNT 10.9 10^3/ul (4.5-11.0)
[2017-11-27 06:43] LABS: BLOOD UREA NITROGEN 20 mg/dL (7-21); CALCIUM 8.7 mg/dL (8.4-10.5); GFR NON-AFRICAN AMERICAN > 60
[2017-11-27] MEDS: Insulin Lispro (HUMAlog) HIGH Coverage SC SCH ×4 (07:30→23:48)
--- NOTE | 2017-11-27 07:37 | CP.PCM.PN ---
Subjective - Date & Time of Evaluation Date of Evaluation: 11/27/17 Time of Evaluation: 06:15 - Subjective Subjective: Awake, feels better, denies shortness of breath Reason for consultation and follow up: Cardiac evaluation of shortness of breath , history of hypertension, Atrial fibrillation,diabetes Seen and examined by me and Dr. Bush Objective - Vital Signs/Intake and Output Vital Signs (last 24 hours): Temp Pulse Resp BP Pulse Ox 98.2 F 66 18 102/53 L 98 11/26/17 23:30 11/27/17 05:34 11/26/17 23:30 11/26/17 23:30 11/26/17 23:30 Intake and Output: 11/27/17 11/27/17 06:59 18:59 Intake Total 580 Balance 580 - Medications Medications: Current Medications Acetaminophen (Tylenol 325mg Tab) 650 mg PO Q6H PRN PRN Reason: Fever >100.4 F Last Admin: 11/26/17 20:49 Dose: 650 mg Albuterol/Ipratropium (Duoneb 3 Mg/0.5 Mg (3 Ml) Ud) 3 ml IH Q2H PRN PRN Reason: Shortness of Breath Alprazolam (Xanax) 0.25 mg PO HS KWAN PRN Reason: Protocol Stop: 12/02/17 22:01 Last Admin: 11/26/17 22:07 Dose: 0.25 mg Aspirin (Aspirin Chewable) 81 mg PO DAILY [facility] Last Admin: 11/26/17 09:34 Dose: 81 mg Enoxaparin Sodium (Lovenox) 70 mg SC Q12H KWAN PRN Reason: Protocol Last Admin: 11/26/17 22:06 Dose: 70 mg Furosemide (Lasix) 40 mg IVP DAILY [facility] Last Admin: 11/26/17 09:35 Dose: 40 mg Glyburide (Micronase) 5 mg PO 0800,1700 [facility] Last Admin: 11/26/17 17:37 Dose: 5 mg Insulin Human Lispro (Humalog High) 0 units SC ACHS [facility] PRN Reason: Protocol Last Admin: 11/26/17 22:06 Dose: Not Given Levalbuterol HCl (Xopenex) 1.25 mg IH [id number] [facility] Last Admin: 11/27/17 02:21 Dose: Not Given Levalbuterol HCl (Xopenex) 1.25 mg IH [id number] PRN PRN Reason: Shortness of Breath Last Admin: 11/26/17 11:42 Dose: 1.25 mg Losartan Potassium (Cozaar) 50 mg PO DAILY [facility] Last Admin: 11/26/17 13:38 Dose: 50 mg Meclizine HCl (Antivert) 25 mg PO 12 [facility] Last Admin: 11/26/17 13:38 Dose: 25 mg Methylprednisolone (Solu-Medrol) 40 mg IV Q12 [facility] Last Admin: 11/26/17 22:07 Dose: 40 mg Nicotine (Nicoderm Cq) 1 patch TD DAILY [facility] Last Admin: 11/26/17 13:38 Dose: 1 patch Ondansetron HCl (Zofran Inj) 4 mg IVP Q6H PRN PRN Reason: Nausea/Vomiting Pantoprazole Sodium (Protonix Ec Tab) 40 mg PO 0630 [facility] Last Admin: 11/27/17 06:05 Dose: 40 mg Verapamil HCl (Calan Tab) 80 mg PO TID [facility] Last Admin: 11/26/17 17:37 Dose: 80 mg - Labs Labs: 11/27/17 05:20 11/27/17 05:20 PT 15.2 SECONDS (9.4-12.5) H 11/25/17 14:15 INR 1.31 11/25/17 14:15 APTT 25.6 Seconds (25.1-36.5) 11/25/17 14:15 - Constitutional Appears: No Acute Distress - Eye Exam Eye Exam: Normal appearance - ENT Exam ENT Exam: Mucous Membranes Moist - Respiratory Exam Respiratory Exam: Decreased Breath Sounds, NORMAL BREATHING PATTERN - Cardiovascular Exam Cardiovascular Exam: +S1, +S2 Additional comments: telemetry afib -60's - GI/Abdominal Exam GI & Abdominal Exam: Soft, Normal Bowel Sounds - Extremities Exam Extremities Exam: Normal Capillary Refill - Neurological Exam Neurological Exam: Alert, Awake, Oriented x3 Additional comments: legally blind - Psychiatric Exam Psychiatric exam: Normal Affect - Skin Skin Exam: Warm Assessment and Plan - Assessment and Plan (Free Text) Assessment: An 87 year old female who came in to the ER due to shortness of breath. History of hypertension,COPD, former smoker, diabetes and A-fib, hyperlipidemia, CT of chest possible lung mass. exacerbation of COPD, nebulizer treatment with relief of shortness of breath. Not on anticoagulation for Afib. Started on Lovenox. Will start Eliquis later on if no invasive procedures to be done, (re: lung biopsy).Stable, Echo to evaluate LV function. Plan: Echo done-Normal LV size-LVEF 65-70% moderate left ventricular hyperthropy, mildly dilated RV, mildly reduced systolic function, trace AR,moderate MR/TR/PVR, RVSP 72mmHg Controlled heart rate- Afib-60's Stable blood pressure Glucose control Continue current medications Continue current treatment If no invasive procedure, Will start Eliquis Will follow up Plan and treatment discusseed with Dr. Bush
[2017-11-27 09:13] LABS: LYMPHOCYTE 6 % (22.0-35.0); MONOCYTE 2 % (1.0-6.0); NEUTROPHIL 92 % (50.0-70.0); PLATELET ESTIMATE NORMAL (NORMAL)
[2017-11-27] MEDS: MethylPREDNISolone 40 mg Vial IV SCH ×2 (09:49→23:49)
[2017-11-27] MEDS: Enoxaparin 80 mg Syringe SC SCH ×2 (10:00→21:15)
--- NOTE | 2017-11-27 12:01 | PN ---
DATE: 11/27/2017 SUBJECTIVE: The patient is 87 years old, seen and examined, lying in bed, seems to be comfortable. States shortness of breath is better, but gets short of breath on walking. PHYSICAL EXAMINATION: VITAL SIGNS: She is afebrile, pulse 70, respirations 18, and blood pressure 135/71. LUNGS: Bilateral fair airflow. Decreased breath sounds. Rhonchi has improved. ABDOMEN: Soft, nontender. No rebound, no guarding. NEUROLOGIC: She is awake, alert, oriented, able to communicate. LABORATORY EXAM: WBC is 10.9, hemoglobin 10, hematocrit 29.5, and platelets of 304. Chemistry: Sodium 127, potassium 3.9, chloride 94, CO2 of 26. BUN 20, creatinine 0.7. Blood sugar of 144. ASSESSMENT: 1. Chronic obstructive pulmonary disease exacerbation. 2. Bronchospasm that has improved. 3. Right upper lung mass 1.4 cm. 4. Vsi-rbxiuvb-zrtgjubhp diabetes. 5. Hypertension. 6. Hyperlipidemia. PLAN: We will continue on IV steroids, continue antibiotics. The patient is scheduled to have stress test on tomorrow. We will follow up the patient in a.m. She does not want to have a biopsy done for her lung mass, spoke to son, Darion. He also is in agreement. Bill Campoverde MD
--- NOTE | 2017-11-27 13:32 | PN ---
DATE: 11/27/2017 This note is an addendum to the initial progress note dictated by nurse practitioner for the lady, Alice Blum. Lying flat on the bed, feels a lot better, admitted with new onset of atrial fibrillation possible exacerbation of COPD. Echo done yesterday that shows moderate LVH, ejection fraction well preserved 65 to 70%. We will get stress test tomorrow for risk stratification. For now, we will leave on Lovenox. Once the stress test is done, we will start Eliquis for history of chronic atrial fibrillation from 7 years. We will keep n.p.o. after 12 midnight for stress test tomorrow. Further recommendation depending upon the hospital course and findings of initial workup. TSH within normal limits. Hemoglobin A1c is 6.8 that reflects poorly controlled diabetes. In the interim, continue aspirin, continue verapamil 80 mg p.o. t.i.d. and if the blood pressure remains low, we will cut down to 60 to 40 mg verapamil. Supplement aggressively potassium. Continue gentle diuretics and keep n.p.o. after 12 midnight for stress test in the morning. Further recommendations after the stress test. Avoid dual nebulizer. Continue Xopenex. We will decrease verapamil from 80 to 40 mg. Give extra K-Dur today at 3 p.m. to supplement potassium. We will keep n.p.o. for stress test in the morning. We will repeat the lab in the morning. Thank you, Dr. Campoverde, for providing us the opportunity in taking care of the patient, Alice Blum. Rakel Bush MD
[2017-11-27] MEDS ORDERED: Potassium Chloride 20 mEq ER Tab PO ONE (15:00)
[2017-11-28] MEDS: Levalbuterol 1.25 MG/3 ML Inhal Soln UD IH SCH ×4 (01:19→20:24)
[2017-11-28] MEDS: Pantoprazole 40 mg EC Tab PO SCH (05:44)
[2017-11-28 06:29] LABS: BASO # 0.01 K/mm3 (0.0-2.0); BASO % 0.1 % (0.0-3.0); GRAN # 12.54 (1.4-6.5); GRAN % 85.2 % (50.0-68.0); HEMOGLOBIN 10.2 g/dL (12.0-16.0); LYMPH # 0.7 (1.2-3.4); LYMPH % 4.8 % (22.0-35.0); MEAN CORPUSCULAR HEMOGLOBIN 30.4 pg (25.0-35.0); MEAN CORPUSCULAR HGB CONC 35.3 g/dl (31.0-37.0); MEAN PLATELET VOLUME 9.5 fl (7.0-11.0); MONO # 1.5 (0.1-0.6); MONO % 9.9 % (1.0-6.0); RBC 3.36 10^6/uL (3.5-6.1); RED CELL DISTRIBUTION WIDTH 13.8 % (11.5-14.5); WHITE BLOOD COUNT 14.7 10^3/ul (4.5-11.0)
[2017-11-28 06:51] LABS: ALB/GLOB RATIO 1.3 (1.1-1.8); ALBUMIN 3.5 g/dL (3.0-4.8); ALT/SGPT 57 U/L (7-56); AST/SGOT 52 U/L (14-36); BLOOD UREA NITROGEN 24 mg/dL (7-21); CALCIUM 8.7 mg/dL (8.4-10.5); GFR NON-AFRICAN AMERICAN > 60
[2017-11-28] MEDS: Insulin Lispro (HUMAlog) HIGH Coverage SC SCH ×4 (07:30→23:07)
--- NOTE | 2017-11-28 07:42 | CP.PCM.PN ---
Subjective - Date & Time of Evaluation Date of Evaluation: 11/28/17 Time of Evaluation: 06:15 - Subjective Subjective: Awake, feels better, denies shortness of breath,legally blind Reason for consultation and follow up: Cardiac evaluation of shortness of breath , history of hypertension, Atrial fibrillation,diabetes Seen and examined by me and Dr. Bush Objective - Vital Signs/Intake and Output Vital Signs (last 24 hours): Temp Pulse Resp BP Pulse Ox 98.4 F 72 18 119/62 97 11/28/17 06:16 11/28/17 06:16 11/28/17 06:16 11/28/17 06:16 11/28/17 06:16 Intake and Output: 11/28/17 11/28/17 06:59 18:59 Intake Total 120 Balance 120 - Medications Medications: Current Medications Acetaminophen (Tylenol 325mg Tab) 650 mg PO Q6H PRN PRN Reason: Fever >100.4 F Last Admin: 11/26/17 20:49 Dose: 650 mg Albuterol/Ipratropium (Duoneb 3 Mg/0.5 Mg (3 Ml) Ud) 3 ml IH Q2H PRN PRN Reason: Shortness of Breath Alprazolam (Xanax) 0.25 mg PO HS KWAN PRN Reason: Protocol Stop: 12/02/17 22:01 Last Admin: 11/27/17 23:50 Dose: Not Given Aspirin (Aspirin Chewable) 81 mg PO DAILY [facility] Last Admin: 11/27/17 09:48 Dose: 81 mg Enoxaparin Sodium (Lovenox) 70 mg SC Q12H [facility]WAN PRN Reason: Protocol Last Admin: 11/27/17 21:15 Dose: 70 mg Furosemide (Lasix) 40 mg IVP DAILY [facility] Last Admin: 11/27/17 09:53 Dose: 40 mg Glyburide (Micronase) 5 mg PO 0800,1700 [facility] Last Admin: 11/27/17 17:45 Dose: 5 mg Insulin Human Lispro (Humalog High) 0 units SC ACHS [facility] PRN Reason: Protocol Last Admin: 11/27/17 23:48 Dose: Not Given Levalbuterol HCl (Xopenex) 1.25 mg IH [id number] [facility] Last Admin: 11/28/17 01:19 Dose: 1.25 mg Levalbuterol HCl (Xopenex) 1.25 mg IH [id number] PRN PRN Reason: Shortness of Breath Last Admin: 11/26/17 11:42 Dose: 1.25 mg Losartan Potassium (Cozaar) 50 mg PO DAILY [facility] Last Admin: 11/27/17 09:49 Dose: 50 mg Methylprednisolone (Solu-Medrol) 30 mg IV Q12 [facility] Last Admin: 11/27/17 23:49 Dose: 30 mg Nicotine (Nicoderm Cq) 1 patch TD DAILY [facility] Last Admin: 11/27/17 10:04 Dose: 1 patch Ondansetron HCl (Zofran Inj) 4 mg IVP Q6H PRN PRN Reason: Nausea/Vomiting Pantoprazole Sodium (Protonix Ec Tab) 40 mg PO 0630 [facility] Last Admin: 11/28/17 05:44 Dose: Not Given Verapamil HCl (Calan Tab) 40 mg PO TID [facility] Last Admin: 11/27/17 17:46 Dose: 40 mg - Labs Labs: 11/28/17 05:30 11/28/17 05:30 PT 15.2 SECONDS (9.4-12.5) H 11/25/17 14:15 INR 1.31 11/25/17 14:15 APTT 25.6 Seconds (25.1-36.5) 11/25/17 14:15 - Constitutional Appears: No Acute Distress - Eye Exam Additional comments: legally blind - ENT Exam ENT Exam: Mucous Membranes Moist - Respiratory Exam Respiratory Exam: Decreased Breath Sounds, Clear to Ausculation Bilateral, NORMAL BREATHING PATTERN - Cardiovascular Exam Cardiovascular Exam: Irregular Rhythm, +S1, +S2 Additional comments: telemetry- Atrial fibrillation 60's - GI/Abdominal Exam GI & Abdominal Exam: Soft, Normal Bowel Sounds - Neurological Exam Neurological Exam: Alert, Awake, Oriented x3 - Psychiatric Exam Psychiatric exam: Normal Affect - Skin Skin Exam: Dry, Warm Assessment and Plan - Assessment and Plan (Free Text) Assessment: An 87 year old female who came in to the ER due to shortness of breath. History of hypertension,COPD, former smoker, diabetes and A-fib, hyperlipidemia, CT of chest possible lung mass. exacerbation of COPD, nebulizer treatment with relief of shortness of breath. Not on anticoagulation for Afib. Started on Lovenox. Will start Eliquis later on if no invasive procedures to be done, (re: lung biopsy).Stable, Echo done-Normal LV size-LVEF 65-70%, moderate left ventricular hypertrophy, mildly dilated RV, mildly reduced systolic function, trace AR, moderate MR/TR/PVR, RVSP 72mmHg. For stress test today. Plan: For Stress test today but patient refusing Explained benefits and risk however still refusing and does not want any further testing Refusing also lung biopsy Controlled heart rate- Afib-60's Will start coagulation for Atrial fibrillation Eliquis 5 mg BID Resume diet , refusing stress test Stable blood pressure Some expiratory wheezing, continue nebulizer treatment Glucose control On ASA 81 mg daily, Lovenox 70 mg daily, Lasix 40 mg daily,Cozaar 50 mg daily Solumedrol 30 mg every 12 hours, Nicoderm patch daily,Verapamil 40 mg TID Continue current medications Continue current treatment Will follow up Plan and treatment discussed with Dr. Bush
[2017-11-28] MEDS: MethylPREDNISolone 40 mg Vial IV SCH ×2 (10:33→21:52)
--- NOTE | 2017-11-28 13:17 | PN ---
DATE: 11/28/2017 SUBJECTIVE: The patient is 87 years old, seen and examined, lying in bed, seems to be comfortable. No cough, no congestion, no shortness of breath. She states she feels a lot better. PHYSICAL EXAMINATION: VITAL SIGNS: She is afebrile, pulse 73, respiration 18, blood pressure 154/64. LUNGS: Bilateral good airflow. Few expiratory rhonchi. HEART: S1, S2 audible. ABDOMEN: Soft, nontender. No rebound, no guarding. NEUROLOGICAL: The patient is awake, alert, oriented, communicative, visually impaired. EXTREMITIES: Bilateral legs, no edema. LABORATORY DATA: WBC is 14.7, hemoglobin 10.2, hematocrit 28.9, platelet of 315. Chemistry: Sodium 131, potassium 4.3, chloride 97, CO2 of 28, BUN 24, creatinine 0.7, blood sugar of 109. ASSESSMENT: 1. Rapid atrial fibrillation, currently is controlled atrial fibrillation. 2. Congestive heart failure. 3. Hypertension. 4. Ici-pteonni-ltbnjlppt diabetes. 5. Lung mass. PLAN: Request for TCU evaluation. The patient refused for stress test. She states she always does not want to have a colonoscopy or stress test; however, she agreed for the plan and she is willing to go to TCU for close monitoring and physical therapy. Once accepted, she can be transferred to TCU. Bill Campoverde MD
[2017-11-29] MEDS: Levalbuterol 1.25 MG/3 ML Inhal Soln UD IH SCH ×3 (01:40→13:37)
--- NOTE | 2017-11-29 04:37 | CON ---
DATE: 11/28/2017 HISTORY OF PRESENT ILLNESS: In short, the patient is an 87-year-old female with multiple medical issues including hypertension, diabetes, AFib. The patient also has history of vertigo. The patient complained of bilateral leg swelling and shortness of breath for a couple of days prior to this admission. The patient is legally blind. Psych consult was called for evaluation of anxiety and possible depression. The patient was seen and examined. The patient has her sister who is next to her. Her name is Gwendolyn. The patient gave permission to talk to her. The patient reported that medical issues making her feel very depressed as well as at times anxious. The patient also reported that blindness could give her feeling of hopelessness, but the patient denied feeling of helplessness. The patient reported that she is taking Xanax as needed for anxiety as well as for insomnia. The patient reported Xanax is very beneficial to her. The patient reported that she does not have any thoughts or intent to kill herself, but at times, she feels it would be better without her in this world, but the patient has strong caodaism belief and she denied intent or plan to kill herself. The patient reported that she has no history of hearing voices. The patient denied that she ever been evaluated by psychiatrist in the past. The patient denied that she ever been suicidal in the past. The patient reported that she has home health aide. The patient also reported that she is very comfortable and familiar with her apartment and she has good support from the family as well as her close friend who is checking up on the patient on daily basis. The patient's vital signs seems to be stable. Temperature 97.9, pulse is 62, blood pressure 124/60, respirations 18. Medications reviewed. The patient is on Tylenol, Xanax 0.25 mg at the nighttime, Colace, aspirin, Lasix, Micronase, Humalog, losartan, Solu-Medrol, Nicoderm, Protonix, verapamil. Labs reviewed. WBC is 14.7, hemoglobin and hematocrit is 10.2 and 28.9. Coagulation reviewed. Chemistry reviewed. AST and ALT mildly elevated. Urinalysis was positive for granular casts. Urine blood was positive, but small amount. MENTAL STATUS EXAM: The patient presented to be alert and oriented, pleasant, cooperative. Speech was normal rate, tone, quality and quantity. Mood described, "some times I feel very depressed, but it is because of my medical issues." Affect was reactive, mood congruent. The patient was very well related to this machine sign writer and seems to be having good supportive therapy and empathic listening was provided and the patient responded to that very well. Thought content, the patient denied visual, auditory or tactile hallucinations. Denied paranoid ideation, transient feeling of hopelessness, but the patient denied feeling helpless. The patient adamantly denied thoughts of harming herself or others. Denied suicidal ideation. Denied intent or plan. Insight and judgment seems to be fair. Impulses are well controlled. IMPRESSION: Rule-out mood disorder and anxiety disorder due to general medical condition. PLAN: This machine sign writer agree with Dr. Campoverde with the Xanax 0.25 mg as needed for insomnia as well as anxiety. The patient was provided supportive therapy and empathic listening. The patient responded well. The patient would like to talk to this machine sign writer tomorrow. We will follow up just to make sure that the patient tolerates medications well and improving. The patient does not want to be on any psychotropic medications as of now. Collateral information was obtained from the patient's sister who is next to her. Thank you very much for letting me participate in the care of your patient. Should you have any questions, give me a call back. Tila Childress MD [facility]
[2017-11-29] MEDS: Pantoprazole 40 mg EC Tab PO SCH (06:15)
--- NOTE | 2017-11-29 07:23 | CP.PCM.PN ---
Subjective - Date & Time of Evaluation Date of Evaluation: 11/29/17 Time of Evaluation: 06:30 - Subjective Subjective: Awake, denies shortness of breath, legally blind,no distress Reason for consultation and follow up: Cardiac evaluation of shortness of breath , history of hypertension, Atrial fibrillation,diabetes Seen and examined by me and Dr. Bush Objective - Vital Signs/Intake and Output Vital Signs (last 24 hours): Temp Pulse Resp BP Pulse Ox 98.5 F 72 18 145/71 96 11/28/17 22:59 11/28/17 22:59 11/28/17 22:59 11/28/17 22:59 11/28/17 22:59 - Medications Medications: Current Medications Acetaminophen (Tylenol 325mg Tab) 650 mg PO Q6H PRN PRN Reason: Fever >100.4 F Last Admin: 11/26/17 20:49 Dose: 650 mg Albuterol/Ipratropium (Duoneb 3 Mg/0.5 Mg (3 Ml) Ud) 3 ml IH Q2H PRN PRN Reason: Shortness of Breath Alprazolam (Xanax) 0.25 mg PO HS [facility] PRN Reason: Protocol Stop: 12/02/17 22:01 Last Admin: 11/28/17 21:53 Dose: 0.25 mg Apixaban (Eliquis) 5 mg PO BID [facility] PRN Reason: Protocol Last Admin: 11/28/17 17:56 Dose: 5 mg Aspirin (Aspirin Chewable) 81 mg PO DAILY [facility] Last Admin: 11/28/17 10:31 Dose: 81 mg Furosemide (Lasix) 40 mg IVP DAILY [facility] Last Admin: 11/28/17 11:00 Dose: 40 mg Glyburide (Micronase) 5 mg PO 0800,1700 [facility] Last Admin: 11/28/17 17:56 Dose: 5 mg Insulin Human Lispro (Humalog High) 0 units SC ACHS [facility] PRN Reason: Protocol Last Admin: 11/28/17 23:07 Dose: Not Given Levalbuterol HCl (Xopenex) 1.25 mg IH [id number] [facility] Last Admin: 11/29/17 01:40 Dose: 1.25 mg Levalbuterol HCl (Xopenex) 1.25 mg IH [id number] PRN PRN Reason: Shortness of Breath Last Admin: 11/26/17 11:42 Dose: 1.25 mg Losartan Potassium (Cozaar) 50 mg PO DAILY [facility] Last Admin: 11/28/17 10:31 Dose: 50 mg Methylprednisolone (Solu-Medrol) 30 mg IV Q12 [facility] Last Admin: 11/28/17 21:52 Dose: 30 mg Nicotine (Nicoderm Cq) 1 patch TD DAILY [facility] Last Admin: 11/28/17 10:33 Dose: 1 patch Ondansetron HCl (Zofran Inj) 4 mg IVP Q6H PRN PRN Reason: Nausea/Vomiting Pantoprazole Sodium (Protonix Ec Tab) 40 mg PO 0630 [facility] Last Admin: 11/29/17 06:15 Dose: 40 mg Verapamil HCl (Calan Sr Tab) 120 mg PO DAILY [facility] - Labs Labs: 11/28/17 05:30 11/28/17 05:30 PT 15.2 SECONDS (9.4-12.5) H 11/25/17 14:15 INR 1.31 11/25/17 14:15 APTT 25.6 Seconds (25.1-36.5) 11/25/17 14:15 - Constitutional Appears: No Acute Distress - Eye Exam Additional comments: legally blind - ENT Exam ENT Exam: Mucous Membranes Dry - Respiratory Exam Respiratory Exam: Decreased Breath Sounds, Clear to Ausculation Bilateral, NORMAL BREATHING PATTERN - Cardiovascular Exam Cardiovascular Exam: +S1, +S2 - GI/Abdominal Exam GI & Abdominal Exam: Soft, Normal Bowel Sounds - Extremities Exam Extremities Exam: Normal Capillary Refill - Neurological Exam Neurological Exam: Alert, Oriented x3 - Psychiatric Exam Psychiatric exam: Normal Affect - Skin Skin Exam: Intact, Warm Assessment and Plan - Assessment and Plan (Free Text) Assessment: An 87 year old female who came in to the ER due to shortness of breath. History of hypertension,COPD, former smoker, diabetes and A-fib, hyperlipidemia, CT of chest possible lung mass. exacerbation of COPD, nebulizer treatment with relief of shortness of breath. Not on anticoagulation for Afib. Started on Lovenox. Will start Eliquis later on if no invasive procedures to be done, (re: lung biopsy).Stable, Echo done-Normal LV size-LVEF 65-70%, moderate left ventricular hypertrophy, mildly dilated RV, mildly reduced systolic function, trace AR,moderate MR/TR/PVR , RVSP 72mmHg. Refusing lung biopsy and Stress test. discontinued telemetry and transferred to medical/surgical unit. Started Eliquis for atrial fibrillation Plan: No distress, comfortable Denies shortness of breath Continue nebulizer treatment Controlled heart rate, stable blood pressure Glucose control On ASA 81 mg daily, Lovenox 70 mg daily, Lasix 40 mg daily,Cozaar 50 mg daily Solumedrol 30 mg every 12 hours, Nicoderm patch daily,Verapamil 40 mg TID Eliquis 5 mg BID Continue current medications Continue current treatment Will follow up Plan and treatment discussed with Dr. Bush
[2017-11-29 08:26] VITALS: TEMP 97.6
--- NOTE | 2017-11-29 08:35 | PN ---
DATE: 11/28/2017 REASON FOR DICTATION: Addendum for initial progress note dictated this morning. The patient as mentioned is scheduled for a stress test. Yesterday, the patient agreed, but this morning, the patient refused and says she does not want two test, one is colonoscopy and a stress test she already told, but yesterday, she agreed because she was sleepy. Admitted with history of paroxysmal atrial fibrillation . Discussed with Dr. Campoverde at length who will start back Eliquis and awaiting for the biopsy. The patient also refuses the biopsy for now. We will continue verapamil 40 mg three times a day and change to once a day verapamil CD that is a long acting verapamil and Eliquis [address] Campoverde will discuss with the son since the patient is legally blind about the risk of fall and if the risk of fall is more than the benefit, then she will stop continue verapamil. As mentioned, we will change from tomorrow this verapamil SR 120 mg once a day and we will discontinue verapamil 40 mg tonight after last dose and we will discontinue telemetry and discharge planning. Thank you, Dr. Campoverde for providing us opportunity in taking care of the patientViktoria. Rakel Bush MD cc: Bill Campoverde MD
[2017-11-29] MEDS: Insulin Lispro (HUMAlog) HIGH Coverage SC SCH ×3 (08:40→17:27)
[2017-11-29] MEDS: MethylPREDNISolone 40 mg Vial IV SCH (09:57)
[2017-11-29] MEDS ORDERED: Verapamil 120 mg ER Tab PO SCH (10:00)
--- NOTE | 2017-11-29 15:22 | PN ---
DATE: 11/29/2017 LOCATION: The patient is in room 565, bed 2. SUBJECTIVE: Progress note has been already dictated by Zeenat Germain and we both examined the patient. The patient is asymptomatic. We have been seeing the patient due to paroxysmal atrial fibrillation. The patient denies any chest pain, shortness of breath, palpation. She had been offered stress test, which she refused. The patient's verapamil was changed to 120 long acting once a day from today and the patient is also on Eliquis 2.[address] Campoverde will decide that if the patient has any risk of fall, then she will stop the Eliquis. Otherwise, she will continue Eliquis along with the verapamil. Again, discussed with the patient today about stress test and she refused, so we will continue present therapy and we will follow with . Rakel Lopez MD
[2017-11-29 15:31] VITALS: BP 135/61; PULSE 70; RESP 19; O2SAT 99
--- NOTE | 2017-11-29 17:30 | PN ---
DATE: 11/29/2017 FOLLOWUP NOTE SUBJECTIVE: The patient was initially seen yesterday for depression and anxiety. This creative writer recommended to continue Xanax as needed for insomnia and anxiety. As per nursing report, the patient had restless night. The patient got her medications early at the morning time. Right now, the patient is rested. This creative writer attempted to speak to the patient, but the patient is deeply sleeping. This creative writer will not wake the patient up. As per nursing staff, the patient does not have any agitation or aggression. The patient did not express any feeling of hopelessness and depression or anxiety. The patient tolerated all medications well. Has fair appetite. Vital signs reviewed. Medications reviewed. Labs reviewed. Leukocytes are going up, on 11/28/2017 was 14.7. Chemistry reviewed. Urinalysis reviewed. MENTAL STATUS EXAMINATION: Not possible to be assessed because the patient is deeply sleeping. 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 PLAN: Continue everything as of now. The patient never expressed thoughts of harming herself or others. This creative writer wanted to follow up on the patient because the patient responded well on empathic listening as well as supportive therapy, but there is no agitation or aggression. The patient is stable from the psychiatric standpoint. We will follow up as needed. Thank you very much for letting me participate in the care of your patient. Tila Childress MD
--- NOTE | 2017-11-30 07:00 | DS ---
HISTORY OF PRESENT ILLNESS: Patient is [id number] who came in with shortness of breath. Patient is active smoker. She has been smoking almost one pack a day for the last 50 to 60 years. She has mild CHF along with COPD with bilateral wheezing. She was in AFib. She started on Cardizem, seemed to be rate controlled, but patient refused stress test. She was also found to have lung nodule. I spoke to patient's son, Darion, who refused to have biopsy done. They do not want any aggressive measures, so the patient is being transferred to TCU for rehab and close monitoring. PAST MEDICAL HISTORY: Significant for, 1. Hypertension. 2. Hyperlipidemia. 3. Anxiety disorder. 4. Wet macular degeneration. 5. Degenerative disc disease status post multiple epidural in the remote past. 6. History of melanoma resection in the past. ALLERGIES: SHE IS NOT ALLERGIC TO ANY MEDICATIONS. PHYSICAL EXAMINATION: GENERAL: Today, she is awake, alert, oriented, communicative. VITAL SIGNS: She is afebrile, pulse 62, respirations 20, blood pressure 135/71. LUNGS: Bilateral fair airflow. No rhonchi or crackle. HEART: S1 and S2 audible. ABDOMEN: Soft, nontender. No rebound. No guarding. NEUROLOGIC: Patient is awake, alert, oriented, able to communicate. Moves all extremities. ASSESSMENT: 1. Chronic obstructive pulmonary disease exacerbation. 2. Mild congestive heart failure. 3. Atrial fibrillation. 4. Edz-taczilv-fmsjmmifx diabetes. 5. Hypertension. 6. Hyperlipidemia. 7. Lung nodule. PLAN: Patient is being discharged today to TCU. Discontinue IV steroids and start her on p.o. prednisone. Encourage physical therapy. We will follow up patient in TCU. Bill Campoverde MD
--- NOTE | 2017-12-02 10:14 | PQF ---
PROVIDER RESPONSE TEXT: Pt has combined systolic and diastolic HTN REVIEWER QUERY TEXT: CHF Acuity and Type Congestive Heart Failure is documented in the Medical Record. Please document the type and acuity (in cludes probable or suspected) Such as: Type: -- Systolic -- Diastolic -- Combined -- Other, please specify Acuity: -- Acute -- Chronic -- Acute on chronic -- Other, please specify Also please document the underlying cause of the CHF (includes probable or suspected) The patient's Clinical Indicators include: Your indication of mild congestive heart failure with a RHD=[id number] treated with lasix, 40 mg IVP please document the type and acuity. Thank you. Query created by: Julia Hay on 12/02/2017 8:49 AM Electronically signed by: Bill Campoverde MD 12/02/2017 10:11 AM
== END 2017-11-29 19:10 | DRG 191 ==
LOC: ED 13:42 → ERH 17:30 → 2RNO 22:58 → 5RNO 11-28 17:17
PROVIDERS: ADMIT Internal Medicine; ATTEND Internal Medicine
DX: J44.1 Chronic obstructive pulmonary disease with (acute) exacerbation (principal); E87.1 Hypo-osmolality and hyponatremia; I50.40 Unspecified combined systolic (congestive) and diastolic (congestive) heart failure; I11.0 Hypertensive heart disease with heart failure; I48.0 Paroxysmal atrial fibrillation; I48.2 Chronic atrial fibrillation; E11.65 Type 2 diabetes mellitus with hyperglycemia; F17.200 Nicotine dependence, unspecified, uncomplicated; F32.9 Major depressive disorder, single episode, unspecified; F06.4 Anxiety disorder due to known physiological condition; E78.5 Hyperlipidemia, unspecified; H54.8 Legal blindness, as defined in USA; H35.3290 Exudative age-related macular degeneration, unspecified eye, stage unspecified; H40.9 Unspecified glaucoma; R91.1 Solitary pulmonary nodule; R42 Dizziness and giddiness; Z79.84 Long term (current) use of oral hypoglycemic drugs; Z79.01 Long term (current) use of anticoagulants; Z79.82 Long term (current) use of aspirin; Z79.899 Other long term (current) drug therapy; Z85.820 Personal history of malignant melanoma of skin

== ENCOUNTER 2017-11-29 19:13 | Inpatient (IN) | payer OTHER, MEDICARE ==
[2017-11-29] MEDS ORDERED: Levalbuterol 1.25 MG/3 ML Inhal Soln UD IH PRN (20:18)
[2017-11-29] MEDS ORDERED: Albuterol-Ipratrop 3 mg / 0.5 (3 ml) UD IH PRN (20:51)
[2017-11-29] MEDS: Insulin Lispro (HUMAlog) HIGH Coverage SC SCH (21:27)
[2017-11-30] MEDS: Levalbuterol 1.25 MG/3 ML Inhal Soln UD IH SCH ×4 (02:53→21:00)
[2017-11-30] MEDS: Insulin Lispro (HUMAlog) HIGH Coverage SC SCH ×4 (06:45→21:23)
[2017-11-30] MEDS: Pantoprazole 40 mg EC Tab PO SCH (06:46)
--- NOTE | 2017-11-30 07:34 | CP.PCM.PCO ---
Physician Communication Note - Physician Communication Note Physician Communication Note: will f/u every other day, next 12/01/17
[2017-11-30] MEDS: Verapamil 120 mg ER Tab PO SCH (09:27)
[2017-12-01] MEDS: Levalbuterol 1.25 MG/3 ML Inhal Soln UD IH SCH ×5 (01:35→20:12)
[2017-12-01] MEDS: Pantoprazole 40 mg EC Tab PO SCH (05:17)
[2017-12-01] MEDS: Insulin Lispro (HUMAlog) HIGH Coverage SC SCH ×4 (06:38→22:26)
[2017-12-01] MEDS: Verapamil 120 mg ER Tab PO SCH (09:21)
--- NOTE | 2017-12-01 10:32 | HP ---
HISTORY OF PRESENT ILLNESS: Patient is 87 years old who came to Emergency Room because of increasing shortness of breath. The patient was treated both for CHF and COPD. She was suggested to have stress test done, but she refused. Patient was also found to have right lung nodule. She refused biopsy. The patient's steroid was tapered down and transferred to TCU for rehab, gait training and close monitoring. PAST MEDICAL HISTORY: She has past medical history significant for: 1. Hypertension. 2. Chronic vertigo. 3. Wrs-ehjmchc-gvmkbadfo diabetes. 4. History of melanoma resection. 5. Degenerative disk disease, status post multiple epidural. ALLERGIES: SHE IS NOT ALLERGIC TO ANY MEDICATION. MEDICATIONS AT HOME: She is on Lasix 40 mg daily, aspirin 81 daily, Xanax 0.25 at bedtime, glyburide 5 mg twice a day, verapamil 120 mg daily, Protonix 40 daily, losartan 50 mg daily. SOCIAL HISTORY: She lives by herself. She is legally blind and lives in an Assisted Living Facility. PHYSICAL EXAMINATION: GENERAL: She is awake, alert, oriented, communicative. VITAL SIGNS: She is afebrile, pulse 77, respirations 18, blood pressure 132/61. LUNGS: Bilateral good airflow. No rhonchi or crackle. HEART: S1 and S2 audible. ABDOMEN: Soft, nontender. No rebound. No guarding. NEUROLOGIC: She is awake, alert, oriented. Legally she is visually impaired macular degeneration. LABORATORY EXAM: Blood sugar is 214. ASSESSMENT: 1. Congestive heart failure exacerbation. 2. Chronic obstructive pulmonary disease exacerbation. 3. Hypertension. 4. Rix-klzykwf-dkdgpwlmj diabetes. 5. Hyperlipidemia. 6. Right lung nodule. The patient refused biopsy and stress test. 7. Deconditioning, difficulty walking. PLAN: Currently, patient is on meclizine 12.5 twice a day as needed, aspirin 81 daily, verapamil 120 daily, losartan 50 mg daily. Continue her on nebulizer treatment. She has been started on Eliquis 2.5 twice a day. We will continue her on nicotine patch. Taper down steroid. Encourage ambulation. We will follow up in the morning. Bill Campoverde MD [facility] # [id number]
--- NOTE | 2017-12-01 11:20 | PN ---
DATE: 12/01/2017 SUBJECTIVE: This advertising copywriter got involved into the patient care because the patient has history of anxiety and depression which is most likely related to the medical issues. The patient is legally blind. The patient has chronic back pain and many more. This advertising copywriter was following the patient up on the medical side and supportive therapy and empathic listening provided. The patient also might benefit from biofeedback and with relaxation technique as well as breathing exercises because the patient was taking benzodiazepines and considering the age of 87 and multiple medical issues, it would be benefit for the patient to educated about breathing and how to control her anxiety. The patient was seen today. The patient presented to be alert and oriented, pleasant, cooperative. The patient remembers this advertising copywriter by name. This advertising copywriter educated the patient about breathing exercises and relaxation technique. The patient was very appreciative. The patient was given homework to do, the patient was receptive. Vital signs reviewed. Labs reviewed. MENTAL STATUS EXAM The patient presented to be alert and oriented, pleasant, cooperative, was receptive to the therapy. Mood described "much, much better." Affect was more reactive, mood congruent. Thought process coherent and goal directed. Thought content, the patient denied feeling of hopelessness or helplessness. The patient denied thoughts of harming herself or others. Denied hearing voices, denied seeing things. Insight and judgment improving. Impulses are well controlled. IMPRESSION Most likely, the patient has anxiety and mood disorder due to general medical condition. PLAN: Continue current management. Continue current medication, Xanax p.r.n. This advertising copywriter provided teaching for relaxation technique and breathing exercises. The patient was receptive. Will follow up on the patient and advise accordingly. Followup should be every other day. Thank you very much for letting me participate in care of your patient. Should you have any questions, give me a call back. Tila Childress MD
--- NOTE | 2017-12-01 23:08 | PN ---
DATE: 12/01/2017 HISTORY OF PRESENT ILLNESS: The patient was admitted to the hospital with CHF, COPD exacerbation. She refused stress test. She was found to have right upper lobe lung nodule. She refused the lung biopsy. She has a history of melanoma status post resection. Currently participating in physical therapy. PAST MEDICAL HISTORY: Hypertension, COPD, nbb-ksmhmxw-uonnwmodi diabetes mellitus, history of melanoma dissection, degenerative disk disease. ALLERGIES: NO KNOWN DRUG ALLERGIES. CURRENT MEDICATIONS: Lasix 40 mg daily, aspirin 81 mg daily, Xanax 0.25 mg at bedtime, glyburide 5 mg b.i.d., verapamil 120 mg daily, Protonix 40 mg daily, losartan 50 mg daily. SOCIAL HISTORY: Lives alone. Legally blind. PHYSICAL EXAMINATION GENERAL: Awake, alert, oriented. VITAL SIGNS: Stable. Temperature 98.7, heart rate is 80 per minute, respiratory rate 15 per minute, blood pressure 120/70. LUNGS: Air entry present and equal bilaterally. No added sounds. HEART: S1 and S2 normal. No murmur. No gallop. ABDOMEN: Soft, nontender. No hepatosplenomegaly. EXTREMITIES: No edema. NEUROLOGIC: Awake, alert, oriented x3. ASSESSMENT: 1. Chronic obstructive pulmonary disease. 2. Congestive heart failure. 3. Right lung nodule. 4. Deconditioning. 5. Hypertension. 6. Diabetes mellitus type 2. PLAN: The patient refused biopsy of the right upper lobe lung nodule. She is currently stable. We will continue current medication. She is on meclizine for vertigo control, verapamil 120 mg daily. Continue losartan 50 mg daily and Eliquis 2.5 mg twice a day. Participating in physical therapy. Continue nicotine patch. Jen Palmer MD
[2017-12-02] MEDS: Levalbuterol 1.25 MG/3 ML Inhal Soln UD IH SCH ×4 (01:59→20:45)
[2017-12-02] MEDS: Pantoprazole 40 mg EC Tab PO SCH (05:48)
[2017-12-02] MEDS: Insulin Lispro (HUMAlog) HIGH Coverage SC SCH ×4 (06:56→22:00)
[2017-12-02] MEDS: Verapamil 120 mg ER Tab PO SCH (10:16)
--- NOTE | 2017-12-02 13:11 | PN ---
DATE: 12/02/2017 SUBJECTIVE: The patient is 87 years old, seen and examined while in gym, doing exercise. She states she feels great. Had bowel movement, happy about that. PHYSICAL EXAMINATION: VITAL SIGNS: She is afebrile, pulse 63, respirations 18, blood pressure 153/75. LUNGS: Bilateral good airflow. No rhonchi or crackle. HEART: S1 and S2 audible. ABDOMEN: Soft. Nontender. No rebound. No guarding. NEUROLOGICAL: She is awake, alert, oriented, communicative. Able to move all extremities. Has generalized weakness and unstable gait because of poor vision. LABORATORY EXAM: Blood sugar is 107. ASSESSMENT: 1. Status post rapid atrial fibrillation. 2. Right upper lung mass. 3. Hypertension. 4. Hyperlipidemia. 5. Rapid atrial fibrillation. 6. Noninsulin-dependent diabetes. PLAN: The patient refused her stress test, so we will keep the patient on verapamil. She has been started on Eliquis 2.5 twice a day. I will continue to monitor her blood sugar. Her bilirubin seems to be okay. I will cut down her steroids. Bill Campoverde MD
[2017-12-03] MEDS: Levalbuterol 1.25 MG/3 ML Inhal Soln UD IH SCH ×4 (01:35→20:11)
[2017-12-03] MEDS: Insulin Lispro (HUMAlog) HIGH Coverage SC SCH ×3 (06:58→22:04)
--- NOTE | 2017-12-03 18:21 | PN ---
DATE: 12/03/2017 FOLLOWUP NOTE SUBJECTIVE: Over the weekend, this ad copy writer follow up on the patient, educated the patient about relaxation technique and breathing exercises. The patient was assigned with the homework. The patient was followed up today. The patient presented like she was working really hard to work on her anxiety. The patient reported that she was able to relax her muscles. She was able to have breathing exercises. The patient reported that technique was very beneficial for her. The patient reported that now she feels much better. The patient reports that her sleep and anxiety is improving and the patient was willing to utilize her new skills after she will go home. The patient denied any thoughts of harming herself. Denied being depressed and denied anxiety symptoms. Vital signs are reviewed. Medications reviewed. The patient was on Xanax 0.25 mg at the nighttime, Colace 2.5 mg twice a day, aspirin, glyburide, Humalog, Xopenex, Cozaar, meclizine, Nicoderm, Zofran, Protonix, prednisone and Calan, verapamil. Labs reviewed. MENTAL STATUS EXAMINATION: The patient presented to be alert and oriented, pleasant, cooperative. Fair eye contact. Speech was normal rate, tone, quality and quantity. Mood described as, "I feel much better." Affect was reactive, mood congruent. Thought process was coherent and goal directed. Thought content, the patient denied visual, auditory, or tactile hallucinations. Denied paranoid ideation. The patient denied thoughts of harming herself or others. Denied intent or plan. Insight and judgment seems to be improving. Impulses are well controlled. IMPRESSION Rule out mood disorder, rule out anxiety disorder due to general medical condition. PLAN Continue current management. Continue current medication. The patient was able to utilize relaxation technique and breathing exercises, find that to be beneficial. The patient can be continued on Xanax. The patient is not in any acute distress. The patient pose no imminent danger to self or others. This ad copy writer will sign off. Should you have any questions give me a call back. Thank you very much for letting me participate in care of this patient. Thank you very much. Tila Childress MD [facility] # [id number]
--- NOTE | 2017-12-03 22:42 | PN ---
DATE: 12/03/2017 SUBJECTIVE: Patient is [id number], eating and tolerating. No significant complaints. PHYSICAL EXAMINATION: VITAL SIGNS: She is afebrile, pulse 70, respirations 20, blood pressure 113/72. LUNGS: Bilateral fair airflow. No rhonchi or crackle. HEART: S1 and S2 audible. ABDOMEN: Soft, nontender. No rebound. No guarding. NEUROLOGIC: She is awake, alert, oriented, communicative. Legally blind. Bilateral leg. No edema. LABORATORY EXAM: Blood sugar is 110. ASSESSMENT: 1. Status post rapid atrial fibrillation. 2. Lung mass. 3. Atrial fibrillation. 4. Legally blind. 5. Hypertension. 6. Non-insulin dependent diabetes. PLAN: We will continue patient on current medications, continue on current physical therapy regimen. We will discuss with patient's son and plan after discharge. Bill Campoverde MD
[2017-12-04] MEDS: Levalbuterol 1.25 MG/3 ML Inhal Soln UD IH SCH ×3 (03:05→13:42)
[2017-12-04] MEDS: Pantoprazole 40 mg EC Tab PO SCH (06:13)
[2017-12-04] MEDS: Insulin Lispro (HUMAlog) HIGH Coverage SC SCH ×4 (06:31→21:25)
[2017-12-04] MEDS: Verapamil 120 mg ER Tab PO SCH (09:24)
[2017-12-04] MEDS ORDERED: Levalbuterol 1.25 MG/3 ML Inhal Soln UD IH PRN (18:09)
--- NOTE | 2017-12-04 18:39 | PN ---
DATE: 12/04/2017 SUBJECTIVE: The patient is 87 years old, seen and examined, doing well, eating and tolerating, participating in therapy. No chest pain, no shortness of breath. PHYSICAL EXAMINATION: VITAL SIGNS: She is afebrile, pulse 85, respirations 20, blood pressure 137/73. LUNGS: Bilateral fair airflow. No rhonchi or crackles. HEART: S1 and S2 audible. ABDOMEN: Soft, nontender. No rebound, no guarding. NEUROLOGIC: The patient is awake, alert, oriented, and communicative. LABORATORY EXAMINATION: Blood sugar is 132. ASSESSMENT: 1. Paroxysmal atrial fibrillation. 2. Status post chronic obstructive pulmonary disease. 3. Hypertension. 4. Hyperlipidemia. 5. New onset atrial fibrillation. PLAN: Currently, the patient is on verapamil 120 daily, losartan 50 mg daily. She is on Eliquis. She is on glyburide. We will cut down her steroids. Discussed with the patient's son and discharge plan for Saturday. Bill Campoverde MD
[2017-12-05] MEDS: Pantoprazole 40 mg EC Tab PO SCH (05:36)
[2017-12-05] MEDS: Insulin Lispro (HUMAlog) HIGH Coverage SC SCH ×4 (06:52→22:27)
[2017-12-05] MEDS: Verapamil 120 mg ER Tab PO SCH (09:36)
--- NOTE | 2017-12-05 15:45 | PN ---
DATE: 12/05/2017 SUBJECTIVE: Patient is 87 years old. Seen and examined, lying in bed, seems to be comfortable. Visually impaired. Denies any chest pain. No shortness of breath. PHYSICAL EXAMINATION: VITAL SIGNS: Patient is afebrile. Pulse 70, respirations 20, blood pressure 168/85. LUNGS: Bilateral good air flow. No rhonchi or crackles. HEART: S1, S2 audible. ABDOMEN: Soft, nontender. No rebound, no guarding. NEUROLOGIC: She is alert, awake, oriented, communicative. Little hard of hearing and visually impaired. EXTREMITIES: No leg edema. LABORATORY DATA: Blood sugar is 107. ASSESSMENT AND PLAN: 1. Status post chronic obstructive pulmonary disease exacerbation. 2. Hypertension. 3. Jxc-xrebiqf-zqwdrjkhv diabetes. 4. Paroxysmal atrial fibrillation. 5. Lung mass. So, plan is the patient is currently on aspirin 81 daily, we will continue that. Continue her on verapamil. She is on losartan, nebulizer treatment. She is on Eliquis, we will continue that. Monitor blood sugar and we will follow up the patient in the morning. Possible discharge plan for Bill Campoverde MD
[2017-12-06] MEDS: Pantoprazole 40 mg EC Tab PO SCH ×2 (05:41→05:42)
[2017-12-06] MEDS: Insulin Lispro (HUMAlog) HIGH Coverage SC SCH ×4 (06:39→23:04)
[2017-12-06] MEDS: Verapamil 120 mg ER Tab PO SCH ×2 (08:02→10:00)
--- NOTE | 2017-12-07 04:04 | PN ---
DATE: 12/06/2017 SUBJECTIVE: Patient is [id number], seen and examined, doing much better, participating in therapy, has been performing very well. PHYSICAL EXAMINATION: VITAL SIGNS: She is afebrile, pulse 67, respirations 20, blood pressure 157/79. LUNGS: Bilateral fair airflow. No rhonchi or crackle. HEART: S1 and S2 audible. ABDOMEN: Soft, obese, nontender. No rebound. No guarding. NEUROLOGICAL: She is awake and alert. Able to communicate. ASSESSMENT: 1. Status post chronic obstructive pulmonary disease exacerbation. 2. Hypertension. 3. Non-insulin dependent diabetes. 4. Hyperlipidemia. 5. Lung mass. PLAN: We will add Lasix to her regimen, taper down steroids slowly. I will order for CBC and CMP in a.m. Possible discharge on Saturday. Bill Campoverde MD
[2017-12-07] MEDS: Pantoprazole 40 mg EC Tab PO SCH (05:10)
[2017-12-07 07:51] LABS: BASO # 0.02 K/mm3 (0.0-2.0); BASO % 0.2 % (0.0-3.0); EOS # 0.1 (0.0-0.7); EOS % 0.8 % (1.5-5.0); GRAN # 10.06 (1.4-6.5); GRAN % 75.8 % (50.0-68.0); HEMOGLOBIN 12.9 g/dL (12.0-16.0); LYMPH # 1.9 (1.2-3.4); LYMPH % 13.9 % (22.0-35.0); MEAN CELL VOLUME 88.7 fl (80.0-105.0); MEAN CORPUSCULAR HEMOGLOBIN 30.4 pg (25.0-35.0); MEAN CORPUSCULAR HGB CONC 34.3 g/dl (31.0-37.0); MEAN PLATELET VOLUME 9.3 fl (7.0-11.0); MONO # 1.2 (0.1-0.6); MONO % 9.3 % (1.0-6.0); RBC 4.24 10^6/uL (3.5-6.1); RED CELL DISTRIBUTION WIDTH 14.3 % (11.5-14.5); WHITE BLOOD COUNT 13.3 10^3/ul (4.5-11.0)
[2017-12-07 08:33] LABS: ALB/GLOB RATIO 1.3 (1.1-1.8); ALBUMIN 3.2 g/dL (3.0-4.8); ALT/SGPT 33 U/L (7-56); AST/SGOT 39 U/L (14-36); BLOOD UREA NITROGEN 24 mg/dL (7-21); CALCIUM 8.4 mg/dL (8.4-10.5); GFR NON-AFRICAN AMERICAN > 60
[2017-12-07] MEDS: Verapamil 120 mg ER Tab PO SCH (09:59)
[2017-12-07] MEDS: Insulin Lispro (HUMAlog) HIGH Coverage SC SCH ×3 (12:02→22:12)
--- NOTE | 2017-12-07 23:02 | PN ---
DATE: 12/07/2017 SUBJECTIVE: The patient is 87-year-old, seen and examined, doing well, ready to go home tomorrow, participating in therapy. PHYSICAL EXAMINATION: VITAL SIGNS: She is afebrile, pulse 74, respirations 20, blood pressure 137/67. LUNGS: Bilateral fair airflow. No rhonchi or crackle. HEART: S1 and S2 audible. ABDOMEN: Soft. Nontender. No rebound. No guarding. NEUROLOGIC: She is awake, alert, oriented, and communicative. LABORATORY DATA: WBC 13.3, hemoglobin 12.9, hematocrit 37.6, and platelets 311. Chemistry: Sodium 132, potassium 4.1, chloride 99, CO2 of 27, BUN 24, creatinine 0.7, blood sugar 184. ASSESSMENT: 1. Status post chronic obstructive pulmonary disease exacerbation. 2. Status post congestive heart failure. 3. Right lung mass. 4 . Chronic atrial fibrillation. 5. Hypertension. 6. Hyperlipidemia. 7. Fzb-xhkgtti-lmjdqbcrg diabetes. PLAN: The patient is currently stable. We will continue her on current medications. She was started on Eliquis. She does not want anything done for her right lung mass. We will reevaluate in a.m. with possible discharge in a.m. Bill Campoverde MD
[2017-12-08] MEDS: Pantoprazole 40 mg EC Tab PO SCH (05:09)
[2017-12-08] MEDS: Insulin Lispro (HUMAlog) HIGH Coverage SC SCH ×2 (06:44→11:13)
[2017-12-08] MEDS: Verapamil 120 mg ER Tab PO SCH (09:49)
[2017-12-08 09:58] VITALS: PULSE 73
[2017-12-08 10:12] VITALS: BP 143/84; RESP 18; TEMP 97.9; O2SAT 92
--- NOTE | 2017-12-09 10:13 | DS ---
HISTORY OF PRESENT ILLNESS: The patient is 87 years old, who was admitted with cough, congestion, shortness of breath. She was found to be in CHF and had COPD with bilateral wheezing. She was also found to be in AFib. Further workup showed she has right lung mass and that was discussed with the patient, she does not want any biopsy or any treatment for that. The patient was evaluated by Cardiology. She refused a stress test also. She was transferred to TCU for rehab. Her stay in rehab was uneventful. She did well. PHYSICAL EXAMINATION: GENERAL: On examination today, she is awake, alert, oriented, communicative. VITAL SIGNS: She is afebrile, pulse 73, respirations 18, blood pressure 143/84. LUNGS: Bilateral good airflow. No rhonchi or crackle. HEART: S1 and S2 audible. ABDOMEN: Soft, obese, nontender. No rebound. No guarding. NEUROLOGICAL: She is awake, alert, oriented. She is legally blind. LABORATORY EXAM: Blood sugar is 81. ASSESSMENT: 1. Chronic obstructive pulmonary disease exacerbation. 2. Status post congestive heart failure. 3. Hypertension. 4. Noninsulin-dependent diabetes. 5. Atrial fibrillation. 6. Hyperlipidemia. 7. Visual impairment. PLAN: The patient is being discharged home on losartan, verapamil. She is on Eliquis 2.5 twice a day. She will resume her and her statin. I will follow up in the office in a week. Bill Campoverde MD
== END 2017-12-08 11:55 | disposition home or self-care (01) | DRG 556 ==
LOC: TRCU 19:13
PROVIDERS: ADMIT Internal Medicine; ATTEND Internal Medicine
PROC: F07Z9FZ Gait Training/Functional Ambulation Treatment using Assistive, Adaptive, Supportive or Protective Equipment (ICD-10-PCS; principal; 2017-12-01)
PROC: F07Z8FZ Transfer Training Treatment using Assistive, Adaptive, Supportive or Protective Equipment (ICD-10-PCS; 2017-12-02)
PROC: F07L6ZZ Therapeutic Exercise Treatment of Musculoskeletal System - Lower Back / Lower Extremity (ICD-10-PCS; 2017-12-02)
PROC: F08Z1FZ Dressing Techniques Treatment using Assistive, Adaptive, Supportive or Protective Equipment (ICD-10-PCS; 2017-12-02)
PROC: F08Z0FZ Bathing/Showering Techniques Treatment using Assistive, Adaptive, Supportive or Protective Equipment (ICD-10-PCS; 2017-12-02)
PROC: F07Z5FZ Bed Mobility Treatment using Assistive, Adaptive, Supportive or Protective Equipment (ICD-10-PCS; 2017-12-03)
PROC: F08Z2ZZ Grooming/Personal Hygiene Treatment (ICD-10-PCS; 2017-12-04)
DX: R26.2 Difficulty in walking, not elsewhere classified (principal); J44.1 Chronic obstructive pulmonary disease with (acute) exacerbation; I11.0 Hypertensive heart disease with heart failure; I50.9 Heart failure, unspecified; I48.2 Chronic atrial fibrillation; E11.9 Type 2 diabetes mellitus without complications; E78.5 Hyperlipidemia, unspecified; H35.30 Unspecified macular degeneration; R91.1 Solitary pulmonary nodule; M51.9 Unspecified thoracic, thoracolumbar and lumbosacral intervertebral disc disorder; H54.8 Legal blindness, as defined in USA; F06.30 Mood disorder due to known physiological condition, unspecified; F06.4 Anxiety disorder due to known physiological condition; M54.9 Dorsalgia, unspecified; R42 Dizziness and giddiness; Z79.4 Long term (current) use of insulin; Z79.82 Long term (current) use of aspirin; Z85.820 Personal history of malignant melanoma of skin